=== PATIENT | female | born 1950 | race Caucasian/White ===

== ENCOUNTER → 2018-08-07 08:31 | Outpatient (CLI) | payer MEDICARE, SELFPAY ==
--- NOTE | 2018-08-07 | DI.MG.S_ITS ---
BILATERAL DIGITAL SCREENING MAMMOGRAM 3D/2D WITH CAD: 08/07/2018 CLINICAL: Routine screening. Family history of breast cancer. Comparison is made to exams dated: 06/26/2017 mammogram, 06/21/2016 mammogram - [facility], and 10/20/2014 mammogram - [facility]. There are scattered fibroglandular elements in both breasts. Current study was also evaluated with a Computer Aided Detection (CAD) system. No significant masses, calcifications, or other findings are seen in either breast. There has been no significant interval change. IMPRESSION: NEGATIVE There is no mammographic evidence of malignancy. A 1 year screening mammogram is recommended. NOTE: For mammograms, a report in lay terms will be sent to the patient. Approximately 15% of breast malignancies will not be visualized mammographically. In the management of a palpable breast mass, a negative mammogram must not discourage biopsy of a clinically suspicious lesion. Electronically Signed By: Brooklyn palacios/juju:08/07/2018 14:08:21 letter sent: Normal Exam ACR BI-RADS Category 1: Negative 3341F
== END ==
PROVIDERS: PCP Physician Assistant; Visit Provider Physician Assistant
DX: Z12.31 Encounter for screening mammogram for malignant neoplasm of breast (principal); Z80.3 Family history of malignant neoplasm of breast
CPT/HCPCS: 77063; 77067

== ENCOUNTER → 2018-10-21 08:57 | Outpatient (CLI) | payer MEDICARE, SELFPAY ==
[2018-10-21 10:36] LABS: Alanine Aminotransferase 35 IU/L (9-52); Albumin 4.1 g/dL (3.5-5.0); Albumin Globulin Ratio 1.4 (1.0-2.8); Alkaline Phosphatase 68 U/L (38-126); Aspartate Aminotransferase 33 IU/L (14-36); BUN Creatinine Ratio 21.3 (6-22); Bilirubin Total 0.6 mg/dL (0.2-1.3); Blood Urea Nitrogen 17 mg/dL (7-17); Calcium 9.3 mg/dL (8.4-10.2); Carbon Dioxide 29 mmol/L (22-32); Chloride 106 mmol/L (98-107); Cholesterol 178 mg/dL (140-199); Estimated Glomerular Filt Rate > 60.0 mL/min (>60); Glucose 102 mg/dL (80-110); HDL Cholesterol 55 mg/dL (40-60); HEMOLYSIS < 15 (0-50); LDL Cholesterol Calculated 107 mg/dL (<100); Potassium 4.9 mmol/L (3.4-5.1); Sodium 141 mmol/L (137-145); Total Protein 7.1 g/dL (6.3-8.2); Triglycerides 79 mg/dL (35-150)
[2018-10-21 11:01] LABS: Thyroid Stimulating Hormone 1.44 uIU/mL (0.47-4.68)
== END ==
PROVIDERS: PCP Physician Assistant; Visit Provider Physician Assistant
DX: E04.9 Nontoxic goiter, unspecified (principal); E78.5 Hyperlipidemia, unspecified; Z51.81 Encounter for therapeutic drug level monitoring
CPT/HCPCS: 36415; 80053; 80061; 84443

== ENCOUNTER → 2019-05-06 10:58 | Outpatient (CLI) | payer MEDICARE, SELFPAY ==
--- NOTE | 2019-05-06 11:00 | DI.RAD.S_ITS ---
PROCEDURE: XR FINGER RT MIN 2V INDICATIONS: sudden onset of swelling and pain; concern for RA TECHNIQUE: AP hand, 2 views of the right finger(s) acquired. COMPARISON: None. FINDINGS: Bones: No fractures or dislocations. No suspicious bony lesions. First CMC and triscaphe joint degeneration. Diffuse interphalangeal joint degeneration, most pronounced at the IP joint of the middle finger, where there are marginal lucencies. Additional marginal lucency present at the second and third metacarpal head. Presumed cyst projects in the lunate Soft tissues: No suspicious soft tissue calcifications. IMPRESSION: Severe middle finger DIP joint degeneration. Marginal lucencies raising possibility of erosive arthropathy. Additional possible erosion seen at the second and third metacarpal head although technically indeterminate. First CMC and triscaphe joint degeneration Dictated by: Edis Prado M.D. on 05/06/2019 at 16:03 Approved by: Edis Prado M.D. on 05/06/2019 at 16:06
[2019-05-06 12:04] LABS: Add Manual Diff / Slide Review NO; Basophils Absolute Auto 100 /uL (0-100); Basophils Percent Auto 1.9 % (0-2); Eosinophils Absolute Auto 200 /uL (0-450); Eosinophils Percent Auto 4.2 % (2-4); Hematocrit 41.8 % (36-46); Lymphocytes Absolute Auto 1500 /uL (1100-4500); Lymphocytes Percent Auto 30.9 % (25-40); Mean Corpuscular HGB Conc 33.5 % (30-36); Mean Corpuscular Hemoglobin 29.4 PG (26-34); Mean Corpuscular Volume 87.6 fL (80-100); Monocytes Absolute Auto 500 /uL (0-900); Monocytes Percent Auto 9.9 % (3-14); Neutrophils Absolute Auto 2600 /uL (1500-7000); Neutrophils Percent Auto 53.1 % (50-75); Platelet Count 205 X10^3/uL (150-400); Red Blood Cell Count 4.78 X10^6/uL (4.0-5.2)
[2019-05-06 12:20] LABS: Erythrocyte Sedimentation Rate 17 MM/HR (0-20)
[2019-05-06 12:21] LABS: Uric Acid 4.5 mg/dL (2.5-6.2)
[2019-05-06 12:28] LABS: Rheumatoid Factor < 8.6 IU/mL (<12.0)
[2019-05-08 12:18] LABS: CCP Antibody (IgG) < 16 Units (< 20)
== END ==
PROVIDERS: PCP Physician Assistant; Visit Provider Physician Assistant
DX: M79.644 Pain in right finger(s) (principal); M25.449 Effusion, unspecified hand; M25.50 Pain in unspecified joint; Z82.61 Family history of arthritis
CPT/HCPCS: 36415; 73140; 84550; 85025; 85651; 86200; 86430

== ENCOUNTER → 2019-08-12 09:26 | Outpatient (CLI) | payer MEDICARE, SELFPAY ==
--- NOTE | 2019-08-12 | DI.MG.S_ITS ---
BILATERAL DIGITAL SCREENING MAMMOGRAM 3D/2D WITH CAD: 08/12/2019 CLINICAL: Routine screening. Family history of breast cancer. Comparison is made to exams dated: 08/07/2018 mammogram, 06/26/2017 mammogram, and 06/21/2016 mammogram - [facility]. There are scattered fibroglandular elements in both breasts. Current study was also evaluated with a Computer Aided Detection (CAD) system. There is a benign cyst in the right breast. Left pacemaker. No significant masses, calcifications, or other findings are seen in either breast. There has been no significant interval change. IMPRESSION: There is no mammographic evidence of malignancy. A 1 year screening mammogram is recommended. This exam was interpreted at Station ID: [id number]. NOTE: For mammograms, a report in lay terms will be sent to the patient. Approximately 15% of breast malignancies will not be visualized mammographically. In the management of a palpable breast mass, a negative mammogram must not discourage biopsy of a clinically suspicious lesion. Electronically Signed By: Marty Torrez M.D. slc/:08/12/2019 10:01:55 letter sent: Normal Exam ACR BI-RADS Category 2: Benign Finding(s) 3342F
== END ==
PROVIDERS: PCP Physician Assistant; Visit Provider Physician Assistant
DX: Z12.31 Encounter for screening mammogram for malignant neoplasm of breast (principal); Z80.3 Family history of malignant neoplasm of breast
CPT/HCPCS: 77063; 77067

== ENCOUNTER → 2019-10-29 07:47 | Outpatient (CLI) | payer MEDICARE, SELFPAY ==
[2019-10-29 08:38] LABS: Alanine Aminotransferase 24 IU/L (<35); Albumin 4.4 g/dL (3.5-5.0); Albumin Globulin Ratio 1.5 (1.0-2.8); Alkaline Phosphatase 71 U/L (38-126); Aspartate Aminotransferase 33 IU/L (14-36); BUN Creatinine Ratio 23.8 (6-22); Bilirubin Total 0.7 mg/dL (0.2-1.3); Blood Urea Nitrogen 19 mg/dL (7-17); Calcium 9.2 mg/dL (8.4-10.2); Carbon Dioxide 30 mmol/L (22-32); Chloride 106 mmol/L (98-107); Cholesterol 184 mg/dL (140-199); Estimated Glomerular Filt Rate > 60.0 mL/min (>60); Glucose 98 mg/dL (80-110); HDL Cholesterol 48 mg/dL (40-60); HEMOLYSIS < 15 (0-50); LDL Cholesterol Calculated 108 mg/dL (<100); Potassium 4.1 mmol/L (3.4-5.1); Sodium 142 mmol/L (137-145); Total Protein 7.4 g/dL (6.3-8.2); Triglycerides 140 mg/dL (35-150)
== END ==
PROVIDERS: PCP Physician Assistant; Referring Provider Physician Assistant; Visit Provider Physician Assistant
DX: E04.9 Nontoxic goiter, unspecified (principal); E78.5 Hyperlipidemia, unspecified
CPT/HCPCS: 36415; 80053; 80061

== ENCOUNTER → 2020-08-14 08:55 | Outpatient (CLI) | payer MEDICARE, SELFPAY ==
--- NOTE | 2020-08-14 09:12 | DI.MG.S_ITS ---
Patient Name: MARGARITO BROWN date: 1950 Sex: F Attending Physician: Lexa Indications: Date: 08/14/2020 09:03 At the request of: GIANNI BERNARD Procedure: MM screening mammo BI BILATERAL DIGITAL SCREENING MAMMOGRAM 3D/2D WITH CAD: 08/14/2020 CLINICAL: Routine screening. Family history of breast cancer. Comparison is made to exams dated: 08/12/2019 mammogram, 08/07/2018 mammogram, and 06/26/2017 mammogram - [facility]. The tissue of both breasts is heterogeneously dense. This may lower the sensitivity of mammography. Current study was also evaluated with a Computer Aided Detection (CAD) system. There is a benign cyst in the right breast. There also are benign calcifications in both breasts. No significant masses, calcifications, or other findings are seen in either breast. There has been no significant interval change. IMPRESSION: BENIGN There is no mammographic evidence of malignancy. A 1 year screening mammogram is recommended. This exam was interpreted at Station ID: [id number]. NOTE: For mammograms, a report in lay terms will be sent to the patient. Approximately 15% of breast malignancies will not be visualized mammographically. In the management of a palpable breast mass, a negative mammogram must not discourage biopsy of a clinically suspicious lesion. Electronically Signed By: Jam mccabe/juju:08/16/2020 08:05:33 letter sent: Normal Exam ACR BI-RADS Category 2: Benign Finding(s) 3342F
== END ==
PROVIDERS: PCP Physician Assistant; Referring Provider Physician Assistant; Visit Provider Physician Assistant
DX: Z12.31 Encounter for screening mammogram for malignant neoplasm of breast (principal)
CPT/HCPCS: 77063; 77067

== ENCOUNTER → 2020-10-21 14:25 | Outpatient (CLI) | payer MEDICARE, SELFPAY ==
[2020-10-21] MEDS: COVID-19 VACC #1, MRNA(MOD) 100 MCG/0.5 ML VIAL IM (14:29)
== END ==
PROVIDERS: PCP Physician Assistant; Visit Provider Internal Medicine
DX: Z23 Encounter for immunization (principal)
CPT/HCPCS: 0011A; 91301

== ENCOUNTER → 2020-11-18 14:18 | Outpatient (CLI) | payer MEDICARE, SELFPAY ==
[2020-11-18] MEDS: COVID-19 VACC #2, MRNA(MOD) 100 MCG/0.5 ML VIAL IM (14:31)
== END ==
PROVIDERS: PCP Family Medicine; Visit Provider Internal Medicine
DX: Z23 Encounter for immunization (principal)
CPT/HCPCS: 0012A; 91301

== ENCOUNTER → 2021-01-12 07:06 | Outpatient (CLI) | payer MEDICARE, SELFPAY ==
[2021-01-12 08:11] LABS: Alanine Aminotransferase 22 IU/L (<35); Albumin 3.9 g/dL (3.5-5.0); Albumin Globulin Ratio 1.6 (1.0-2.8); Alkaline Phosphatase 71 U/L (38-126); Aspartate Aminotransferase 30 IU/L (14-36); BUN Creatinine Ratio 22.4 (6-22); Bilirubin Total 0.4 mg/dL (0.2-1.3); Blood Urea Nitrogen 19 mg/dL (7-17); Calcium 9.6 mg/dL (8.4-10.2); Carbon Dioxide 28 mmol/L (22-32); Chloride 107 mmol/L (98-107); Cholesterol 157 mg/dL (140-199); Estimated Glomerular Filt Rate > 60.0 mL/min (>60); Globulin 2.5 g/dL (1.7-4.1); Glucose 88 mg/dL (80-110); HDL Cholesterol 54 mg/dL (40-60); HEMOLYSIS < 15 (0-50); LDL Cholesterol Calculated 78 mg/dL (<100); Potassium 5.3 mmol/L (3.4-5.1); Sodium 140 mmol/L (137-145); Total Protein 6.4 g/dL (6.3-8.2); Triglycerides 127 mg/dL (35-150)
== END ==
PROVIDERS: PCP Family Medicine; Referring Provider Family Medicine; Visit Provider Family Medicine
DX: E04.9 Nontoxic goiter, unspecified (principal); E78.5 Hyperlipidemia, unspecified
CPT/HCPCS: 36415; 80053; 80061

== ENCOUNTER → 2021-02-17 09:46 | Outpatient (CLI) | payer MEDICARE, SELFPAY ==
[2021-02-17 10:48] LABS: BUN Creatinine Ratio 19.3 (6-22); Blood Urea Nitrogen 17 mg/dL (7-17); Calcium 9.9 mg/dL (8.4-10.2); Carbon Dioxide 30 mmol/L (22-32); Chloride 104 mmol/L (98-107); Estimated Glomerular Filt Rate > 60.0 mL/min (>60); Glucose 86 mg/dL (80-110); HEMOLYSIS < 15 (0-50); Potassium 4.6 mmol/L (3.4-5.1); Sodium 140 mmol/L (137-145)
== END ==
PROVIDERS: PCP Family Medicine; Referring Provider Family Medicine; Visit Provider Family Medicine
DX: E87.5 Hyperkalemia (principal)
CPT/HCPCS: 36415; 80048

== ENCOUNTER → 2021-09-01 10:58 | Outpatient (CLI) | payer MEDICARE, SELFPAY ==
--- NOTE | 2021-09-01 | DI.MG.S_ITS ---
BILATERAL DIGITAL SCREENING MAMMOGRAM 3D/2D WITH CAD: 09/01/2021 CLINICAL: Routine screening. Family history of breast cancer. Comparison is made to exams dated: 08/14/2020 mammogram, 08/12/2019 mammogram, and 08/07/2018 mammogram - [facility]. The tissue of both breasts is heterogeneously dense. This may lower the sensitivity of mammography. Current study was also evaluated with a Computer Aided Detection (CAD) system. There is an oval low density asymmetry with a circumscribed margin in the left breast middle depth superior region seen on the mediolateral oblique view only. This is increased in size. No other significant masses, calcifications, or other findings are seen in either breast. IMPRESSION: INCOMPLETE: NEEDS ADDITIONAL IMAGING EVALUATION The oval low density asymmetry in the left breast is indeterminate. A diagnostic mammogram and ultrasound is recommended. This exam was interpreted at Station ID: [id number]. NOTE: For mammograms, a report in lay terms will be sent to the patient. Approximately 15% of breast malignancies will not be visualized mammographically. In the management of a palpable breast mass, a negative mammogram must not discourage biopsy of a clinically suspicious lesion. Electronically Signed By: Renita garcia/:09/01/2021 11:55:53 letter sent: Additional Imaging Needed ACR BI-RADS Category 0: Incomplete 3340F
== END ==
PROVIDERS: PCP Family Medicine; Referring Provider Family Medicine; Visit Provider Family Medicine
DX: Z12.31 Encounter for screening mammogram for malignant neoplasm of breast (principal); Z80.3 Family history of malignant neoplasm of breast
CPT/HCPCS: 77063; 77067

== ENCOUNTER → 2021-09-04 11:16 | Outpatient (CLI) | payer MEDICARE, SELFPAY ==
[2021-09-04 11:45] LABS: COVID19 -Nasal RAPID Negative (Negative)
== END ==
PROVIDERS: PCP Family Medicine; Referring Provider Nurse Practitioner Family; Visit Provider Nurse Practitioner Family
DX: R05.9 Cough, unspecified (principal); R09.89 Other specified symptoms and signs involving the circulatory and respiratory systems; R53.83 Other fatigue
CPT/HCPCS: 87635

== ENCOUNTER → 2021-09-29 14:04 | Outpatient (CLI) | payer MEDICARE, SELFPAY ==
--- NOTE | 2021-09-29 | DI.MG.S_ITS ---
UNILATERAL LEFT DIGITAL DIAGNOSTIC MAMMOGRAM 3D/2D WITH ADDITIONAL VIEWS: 09/29/2021 CLINICAL: Additional evaluation requested from prior study. Comparison is made to exams dated: 09/01/2021 mammogram, 08/14/2020 mammogram, 08/12/2019 mammogram, and 08/07/2018 mammogram - [facility]. The tissue of left breast is heterogeneously dense. This may lower the sensitivity of mammography. There is a 0.6 cm oval mass with a circumscribed margin in the left breast at 12 o'clock middle depth. This is seen in additional views. This is increased in size. No other significant masses or calcifications are seen in the breast. IMPRESSION: INCOMPLETE: NEEDS ADDITIONAL IMAGING EVALUATION The 0.6 cm oval mass in the left breast is indeterminate. An ultrasound is recommended. This exam was interpreted at Station ID: [id number]. NOTE: For mammograms, a report in lay terms will be sent to the patient. Approximately 15% of breast malignancies will not be visualized mammographically. In the management of a palpable breast mass, a negative mammogram must not discourage biopsy of a clinically suspicious lesion. Electronically Signed By: Moses ortega/juju:09/29/2021 14:39:22 ACR BI-RADS Category 0: Incomplete 3340F
--- NOTE | 2021-09-29 14:06 | DI.US.S_ITS ---
LIMITED ULTRASOUND OF LEFT BREAST: 09/29/2021 CLINICAL: Patient returns today to evaluate an asymmetry in the left breast. Comparison is made to exams dated: 09/29/2021 mammogram, 09/01/2021 mammogram, 08/14/2020 mammogram, 08/12/2019 mammogram, and 08/07/2018 mammogram - [facility]. Color flow ultrasound of the left breast 12 o'clock region was performed. Hodge scale images of the real-time examination were reviewed. There is a 0.6 cm x 0.7 cm x 0.3 cm oval cyst with a smooth internal wall in the left breast at 12 o'clock middle depth 2 cm from the nipple. This oval cyst is hypoechoic with posterior acoustic enhancement. This correlates with mammography findings. Color flow imaging demonstrates that there is no vascularity present. IMPRESSION: PROBABLY BENIGN The 0.6 cm x 0.7 cm x 0.3 cm oval cyst in the left breast is consistent with a complicated cyst and is probably benign. A follow-up left ultrasound in 6 months is recommended to demonstrate stability. This exam was interpreted at Station ID: [id number]. Electronically Signed By: Moses ortega/juju:09/29/2021 14:40:36 letter sent: Followup Recommended Ultrasound BI-RADS: 3 Probably benign
== END ==
PROVIDERS: PCP Family Medicine; Referring Provider Family Medicine; Visit Provider Family Medicine
DX: R92.8 Other abnormal and inconclusive findings on diagnostic imaging of breast (principal); N60.02 Solitary cyst of left breast
CPT/HCPCS: 76642; 77065; G0279

== ENCOUNTER → 2022-01-24 07:14 | Outpatient (CLI) | payer MEDICARE, SELFPAY ==
[2022-01-24 08:48] LABS: Add Manual Diff / Slide Review NO; Basophils Absolute Auto 100 /uL (0-100); Basophils Percent Auto 1.7 % (0-2); Eosinophils Absolute Auto 700 /uL (0-450); Eosinophils Percent Auto 11.6 % (2-4); Hematocrit 39.9 % (36-46); Hemoglobin 13.6 g/dL (12.0-16.0); Lymphocytes Absolute Auto 1600 /uL (1100-4500); Lymphocytes Percent Auto 27.5 % (25-40); Mean Corpuscular HGB Conc 34.1 % (30-36); Mean Corpuscular Hemoglobin 29.3 PG (26-34); Monocytes Absolute Auto 500 /uL (0-900); Monocytes Percent Auto 8.2 % (3-14); Neutrophils Absolute Auto 2900 /uL (1500-7000); Platelet Count 205 X10^3/uL (150-400); Red Blood Cell Count 4.65 X10^6/uL (4.0-5.2); Red Cell Distribution Width 13.1 % (11.6-14.8); White Blood Cell Count 5.7 X10^3/uL (4.5-11.0)
[2022-01-24 08:59] LABS: Alanine Aminotransferase 29 IU/L (<35); Albumin 4.2 g/dL (3.5-5.0); Albumin Globulin Ratio 1.4 (1.0-2.8); Alkaline Phosphatase 63 U/L (38-126); Aspartate Aminotransferase 28 IU/L (14-36); BUN Creatinine Ratio 18.9 (6-22); Bilirubin Total 0.4 mg/dL (0.2-1.3); Blood Urea Nitrogen 17 mg/dL (7-17); Calcium 8.8 mg/dL (8.4-10.2); Carbon Dioxide 29 mmol/L (22-32); Chloride 106 mmol/L (98-107); Cholesterol 192 mg/dL (140-199); Estimated Glomerular Filt Rate > 60 mL/min (>60); Glucose 96 mg/dL (80-110); HDL Cholesterol 52 mg/dL (40-60); HEMOLYSIS < 15 (0-50); LDL Cholesterol Calculated 114 mg/dL (<100); Potassium 4.3 mmol/L (3.4-5.1); Sodium 141 mmol/L (137-145); Total Protein 7.2 g/dL (6.3-8.2); Triglycerides 129 mg/dL (35-150)
== END ==
PROVIDERS: PCP Family Medicine; Referring Provider Family Medicine; Visit Provider Family Medicine
DX: E78.5 Hyperlipidemia, unspecified (principal); E78.2 Mixed hyperlipidemia; E04.9 Nontoxic goiter, unspecified
CPT/HCPCS: 36415; 80053; 80061; 84443; 85025

== ENCOUNTER → 2022-04-03 09:19 | Outpatient (CLI) | payer MEDICARE, SELFPAY ==
--- NOTE | 2022-04-03 09:20 | DI.US.S_ITS ---
LIMITED ULTRASOUND OF LEFT BREAST: 04/03/2022 CLINICAL: 6 month follow-up of cysts. Comparison is made to exams dated: 04/03/2022 mammogram, 09/29/2021 ultrasound, 09/29/2021 mammogram, 09/01/2021 mammogram, 08/14/2020 mammogram, and 08/12/2019 mammogram - [facility]. Color flow ultrasound of the left breast 12 o'clock region was performed. Hodge scale images of the real-time examination were reviewed. There is a 0.6 cm x 0.8 cm x 0.4 cm oval cyst with a smooth internal wall in the left breast at 12 o'clock middle depth 2 cm from the nipple. This oval cyst is hypoechoic with posterior acoustic enhancement. This abnormality is not significantly changed and correlates with mammography findings. Color flow imaging demonstrates that there is no vascularity present. IMPRESSION: PROBABLY BENIGN The 0.6 cm x 0.8 cm x 0.4 cm oval cyst in the left breast is consistent with a complicated cyst and is probably benign. A follow-up mammogram and an ultrasound in 6 months is recommended to demonstrate stability. This exam was interpreted at Station ID: [id number]. Electronically Signed By: Moses ortega/juju:04/03/2022 10:41:16 letter sent: Followup Recommended Ultrasound BI-RADS: 3 Probably benign
--- NOTE | 2022-04-03 09:20 | DI.MG.S_ITS ---
UNILATERAL LEFT DIGITAL DIAGNOSTIC MAMMOGRAM 3D/2D SHORT-TERM FOLLOW-UP: 04/03/2022 CLINICAL: Short term follow up. Comparison is made to exams dated: 09/29/2021 ultrasound, 09/29/2021 mammogram, 09/01/2021 mammogram, 08/14/2020 mammogram, and 08/12/2019 mammogram - [facility]. The tissue of left breast is heterogeneously dense. This may lower the sensitivity of mammography. There is a 0.6 cm oval mass with a circumscribed margin in the left breast at 12 o'clock middle depth. This is not significantly changed. No other significant masses or calcifications are seen in the breast. IMPRESSION: INCOMPLETE: NEEDS ADDITIONAL IMAGING EVALUATION The 0.6 cm oval mass in the left breast is indeterminate. An ultrasound is recommended. This exam was interpreted at Station ID: [id number]. NOTE: For mammograms, a report in lay terms will be sent to the patient. Approximately 15% of breast malignancies will not be visualized mammographically. In the management of a palpable breast mass, a negative mammogram must not discourage biopsy of a clinically suspicious lesion. Electronically Signed By: Moses ortega/juju:04/03/2022 10:40:12 ACR BI-RADS Category 0: Incomplete 3340F
== END ==
PROVIDERS: PCP Family Medicine; Referring Provider Family Medicine; Visit Provider Family Medicine
DX: R92.8 Other abnormal and inconclusive findings on diagnostic imaging of breast (principal); N63.20 Unspecified lump in the left breast, unspecified quadrant
CPT/HCPCS: 76642; 77065; G0279

== ENCOUNTER → 2022-10-04 12:04 | Outpatient (CLI) | payer MEDICARE, SELFPAY ==
--- NOTE | 2022-10-04 12:06 | DI.US.S_ITS ---
LIMITED ULTRASOUND OF LEFT BREAST: 10/04/2022 CLINICAL: Patient returns today to evaluate an asymmetry in the left breast. Comparison is made to exams dated: 10/04/2022 mammogram, 04/03/2022 ultrasound, 04/03/2022 mammogram, 09/29/2021 ultrasound, 09/29/2021 mammogram, and 09/01/2021 mammogram - [facility]. Color flow ultrasound of the left breast 12 o'clock region was performed. Hodge scale images of the real-time examination were reviewed. There is a stable 0.6 cm x 0.8 cm x 0.4 cm oval cyst in the left breast at 12 o'clock anterior depth 2 cm from the nipple. This oval cyst is nearly anechoic and minimally hypoechoic with posterior acoustic enhancement. This correlates with mammography findings. Color flow imaging demonstrates that there is no vascularity present. IMPRESSION: PROBABLY BENIGN The stable 0.6 cm x 0.8 cm x 0.4 cm oval cyst in the left breast is consistent with a complicated cyst and is probably benign. A follow-up left mammogram and an ultrasound in 12 months is recommended. The patient will be due for bilateral mammograms at that same visit. Findings and recommendations were conveyed to the patient at time of exam. This exam was interpreted at Station ID: [id number]. Electronically Signed By: Renita garcia/:10/04/2022 14:16:48 letter sent: Followup Recommended Ultrasound BI-RADS: 3 Probably benign
--- NOTE | 2022-10-04 12:06 | DI.MG.S_ITS ---
BILATERAL DIGITAL DIAGNOSTIC MAMMOGRAM 3D/2D SHORT-TERM FOLLOW-UP: 10/04/2022 CLINICAL: Short term follow up of the left breast, due for bilateral imaging. Comparison is made to exams dated: 04/03/2022 mammogram, 09/29/2021 mammogram, and 09/01/2021 mammogram - [facility]. Both breasts are heterogeneously dense, which may obscure small masses (category c / 51-75% glandular tissue). There is a 7 mm oval low density asymmetry with a circumscribed margin in the left breast at 12 o'clock middle depth. This is seen in additional views. This is not significantly changed. No other significant masses, calcifications, or other findings are seen in either breast. Mammograms are otherwise stable. IMPRESSION: INCOMPLETE: NEEDS ADDITIONAL IMAGING EVALUATION The 7 mm oval low density asymmetry in the left breast is stable. An ultrasound is recommended for confirmation of stability. This was performed immediately following this exam. This exam was interpreted at Station ID: [id number]. NOTE: For mammograms, a report in lay terms will be sent to the patient. Approximately 15% of breast malignancies will not be visualized mammographically. In the management of a palpable breast mass, a negative mammogram must not discourage biopsy of a clinically suspicious lesion. Electronically Signed By: Renita garcia/:10/04/2022 13:03:32 ACR BI-RADS Category 0: Incomplete 3340F
== END ==
PROVIDERS: PCP Family Medicine; Referring Provider Family Medicine; Visit Provider Family Medicine
DX: R92.8 Other abnormal and inconclusive findings on diagnostic imaging of breast (principal); N60.02 Solitary cyst of left breast
CPT/HCPCS: 76642; 77066; G0279

== ENCOUNTER → 2022-11-17 12:25 | Outpatient (CLI) | payer MEDICARE, SELFPAY ==
[2022-11-17 14:04] LABS: Add Manual Diff / Slide Review NO; Basophils Absolute Auto 100 /uL (0-100); Basophils Percent Auto 1.3 % (0-2); Eosinophils Absolute Auto 200 /uL (0-450); Eosinophils Percent Auto 2.9 % (2-4); Hematocrit 39.9 % (36-46); Hemoglobin 13.1 g/dL (12.0-16.0); Lymphocytes Absolute Auto 1700 /uL (1100-4500); Lymphocytes Percent Auto 24.8 % (25-40); Mean Corpuscular HGB Conc 32.7 % (30-36); Mean Corpuscular Hemoglobin 28.4 PG (26-34); Mean Corpuscular Volume 86.8 fL (80-100); Monocytes Absolute Auto 500 /uL (0-900); Monocytes Percent Auto 7.8 % (3-14); Neutrophils Absolute Auto 4300 /uL (1500-7000); Neutrophils Percent Auto 63.2 % (50-75); Platelet Count 234 X10^3/uL (150-400); Red Cell Distribution Width 12.9 % (11.6-14.8); White Blood Cell Count 6.8 X10^3/uL (4.5-11.0)
[2022-11-17 14:14] LABS: Alanine Aminotransferase 26 IU/L (<35); Albumin 4.4 g/dL (3.5-5.0); Albumin Globulin Ratio 1.4 (1.0-2.8); Alkaline Phosphatase 77 U/L (38-126); Aspartate Aminotransferase 28 IU/L (14-36); BUN Creatinine Ratio 23.6 (6-22); Bilirubin Total 0.6 mg/dL (0.2-1.3); Blood Urea Nitrogen 17 mg/dL (7-17); Calcium 9.1 mg/dL (8.4-10.2); Carbon Dioxide 30 mmol/L (22-32); Chloride 103 mmol/L (98-107); Estimated Glomerular Filt Rate > 60 mL/min (>60); Globulin 3.1 g/dL (1.7-4.1); Glucose 81 mg/dL (80-110); HEMOLYSIS < 15 (0-50); Potassium 4.7 mmol/L (3.4-5.1); Sodium 140 mmol/L (137-145); Total Protein 7.5 g/dL (6.3-8.2)
[2022-11-17 14:45] LABS: TSH w/ Reflex to FT4 0.05 uIU/mL (0.47-4.68)
[2022-11-17 15:03] LABS: Vitamin B12 734 pg/mL (239-931)
== END ==
PROVIDERS: PCP Family Medicine; Referring Provider Family Medicine; Visit Provider Family Medicine
DX: R20.0 Anesthesia of skin (principal)
CPT/HCPCS: 36415; 80053; 82607; 84439; 84443; 85025

== ENCOUNTER → 2023-01-01 07:52 | Outpatient (CLI) | payer MEDICARE, SELFPAY ==
[2023-01-01 09:39] LABS: TSH w/ Reflex to FT4 0.38 uIU/mL (0.47-4.68)
[2023-01-01 10:03] LABS: Free T4, Direct Thyroxine 0.94 ng/dL (0.78-2.19)
== END ==
PROVIDERS: PCP Family Medicine; Referring Provider Family Medicine; Visit Provider Family Medicine
DX: R79.89 Other specified abnormal findings of blood chemistry (principal)
CPT/HCPCS: 36415; 84439; 84443

== ENCOUNTER → 2023-01-24 08:15 | Outpatient (CLI) | payer MEDICARE, SELFPAY ==
--- NOTE | 2023-01-24 08:16 | DI.US.S_ITS ---
PROCEDURE: US THYROID INDICATIONS: low tsh level, thyroid nodules TECHNIQUE: Real-time scanning was performed of the thyroid gland, with image documentation. COMPARISON: [facility], US, THYROID, 04/27/2017, 10:53. FINDINGS: Right: Thyroid lobe measures 6.9 x 1.7 x 3.4 cm, and is homogeneous in echotexture. Left: Thyroid lobe measures 5.6 x 1.4 x 2.0 cm, and is homogenous in echotexture. Isthmus: 4 mm thick. Nodule number: 1; previous inclusive biopsy Location: Right superior pole Size: 2.5 x 1.7 x 1.5 cm. Previously 2.3 x 1.3 x 2.0 centimeter. Composition: Mixed solid and cystic Echogenicity: Hypoechoic Shape: wider than tall. Margins: Smooth Echogenic foci: Punctate Total points: 6 ACR TI-RADS category: Moderate suspicion Nodule number: 2. Previously biopsied with benign results. Location: Right inferior pole Size: 3.8 x 3.4 x 2.3 cm. Previously 2.1 x 2.2 x 1.6 Composition: Mostly solid Echogenicity: Isoechoic Shape: wider than tall. Margins: Smooth Echogenic foci: None Total points: 3 ACR TI-RADS category: Mild suspicion Nodule number: 3 Location: Left inferior Size: 0.7 cm. Composition: Cystic ACR TI-RADS category: Benign Nodule number: 4 Location: Left superior pole Size: 2.0 x 1.2 x 1.3 cm. Previously 0.8 x 0.6 x 0.5 centimeter. Composition: Mixed cystic and solid Echogenicity: Isoechoic Shape: wider than tall. Margins: Smooth Echogenic foci: None Total points: 2 ACR TI-RADS category: Not suspicious IMPRESSION: Slight interval growth of the moderate suspicion thyroid nodule on the superior pole of the right thyroid. This was previously biopsied with inconclusive results. Moderate interval growth of the mildly suspicion thyroid nodule in the inferior pole of the right thyroid lobe. This was previously biopsied with benign results. ACR TI-RADS definitions and recommendations: TI-RADS 1 (benign): 0 points. FNA not needed. TI-RADS 2 (not suspicious): 2 points. FNA not needed. TI-RADS 3 (mildly suspicious): 3 points. * FNA if 2.5 cm or larger, follow up if 1.5 cm or larger (at 1, 3, and 5 years). TI-RADS 4 (moderately suspicious): 4-6 points. * FNA if 1.5 cm or larger, follow up if 1 cm or larger (at 1, 2, 3, and 5 years). TI-RADS 5 (highly suspicious): 7 points or more. * FNA if 1 cm or larger, follow up if 0.5 cm or larger (every year for 5 years). Dictated by: Guillaume Choi M.D. on 01/24/2023 at 13:04 Approved by: Guillaume Choi M.D. on 01/24/2023 at 13:11
== END ==
PROVIDERS: PCP Family Medicine; Referring Provider Family Medicine; Visit Provider Family Medicine
DX: E04.2 Nontoxic multinodular goiter (principal); R79.89 Other specified abnormal findings of blood chemistry
CPT/HCPCS: 76536

== ENCOUNTER → 2023-02-22 11:01 | Outpatient (CLI) | payer MEDICARE, SELFPAY ==
[2023-02-22 12:35] LABS: TSH w/ Reflex to FT4 0.15 uIU/mL (0.47-4.68)
[2023-02-22 13:00] LABS: Free T4, Direct Thyroxine 1.12 ng/dL (0.78-2.19)
== END ==
PROVIDERS: PCP Family Medicine; Referring Provider Family Medicine; Visit Provider Family Medicine
DX: E04.9 Nontoxic goiter, unspecified (principal); R79.89 Other specified abnormal findings of blood chemistry
CPT/HCPCS: 36415; 84439; 84443

== ENCOUNTER → 2023-05-22 13:12 | Outpatient (CLI) | payer MEDICARE, SELFPAY ==
[2023-05-22 14:14] LABS: Add Manual Diff / Slide Review NO; Basophils Absolute Auto 100 /uL (0-100); Basophils Percent Auto 1.3 % (0-2); Eosinophils Absolute Auto 200 /uL (0-450); Eosinophils Percent Auto 3.6 % (2-4); Hematocrit 39.5 % (36-46); Hemoglobin 13.7 g/dL (12.0-16.0); Lymphocytes Absolute Auto 1500 /uL (1100-4500); Lymphocytes Percent Auto 28.1 % (25-40); Mean Corpuscular HGB Conc 34.6 % (30-36); Mean Corpuscular Hemoglobin 29.3 PG (26-34); Mean Corpuscular Volume 84.5 fL (80-100); Monocytes Absolute Auto 300 /uL (0-900); Monocytes Percent Auto 6.4 % (3-14); Neutrophils Absolute Auto 3300 /uL (1500-7000); Neutrophils Percent Auto 60.6 % (50-75); Platelet Count 216 X10^3/uL (150-400); Red Blood Cell Count 4.68 X10^6/uL (4.0-5.2); Red Cell Distribution Width 13.3 % (11.6-14.8); White Blood Cell Count 5.4 X10^3/uL (4.5-11.0)
[2023-05-22 14:38] LABS: Alanine Aminotransferase 25 IU/L (<35); Albumin 4.4 g/dL (3.5-5.0); Albumin Globulin Ratio 1.4 (1.0-2.8); Alkaline Phosphatase 79 U/L (38-126); Aspartate Aminotransferase 28 IU/L (14-36); BUN Creatinine Ratio 19.5 (6-22); Bilirubin Total 0.4 mg/dL (0.2-1.3); Blood Urea Nitrogen 15 mg/dL (7-17); Calcium 9.3 mg/dL (8.4-10.2); Carbon Dioxide 25 mmol/L (22-32); Chloride 107 mmol/L (98-107); Estimated Glomerular Filt Rate > 60 mL/min (>60); Globulin 3.1 g/dL (1.7-4.1); Glucose 98 mg/dL (80-110); HEMOLYSIS < 15 (0-50); Potassium 4.3 mmol/L (3.4-5.1); Sodium 138 mmol/L (137-145); Total Protein 7.5 g/dL (6.3-8.2)
[2023-05-22 14:56] LABS: Free T3, Triiodothyronine Free 4.25 pg/mL (2.77-5.27); Free T4, Direct Thyroxine 0.99 ng/dL (0.78-2.19)
[2023-05-23 06:40] LABS: Thyroid Peroxidase Antibodies <9 IU/mL (0-34)
[2023-05-23 16:56] LABS: Anti Thyroglobulin Antibody <1.0 IU/mL (0.0-0.9)
[2023-05-24 07:40] LABS: Thyrotropin Receptor AB <1.10 IU/L (0.00-1.75)
[2023-05-24 19:25] LABS: Thyroid Stimulating Immunoglob < 0.10 IU/L (0.00-0.55)
== END ==
PROVIDERS: PCP Family Medicine; Referring Provider Internal Medicine Endocrinology, Diabetes & Metabolism; Visit Provider Internal Medicine Endocrinology, Diabetes & Metabolism
DX: E05.90 Thyrotoxicosis, unspecified without thyrotoxic crisis or storm (principal)
CPT/HCPCS: 36415; 80053; 83520; 84439; 84443; 84445; 84481; 85025; 86376; 86800

== ENCOUNTER → 2023-10-15 08:40 | Outpatient (CLI) | payer MEDICARE, SELFPAY ==
--- NOTE | 2023-10-15 08:41 | DI.MG.S_ITS ---
BILATERAL DIGITAL DIAGNOSTIC MAMMOGRAM 3D/2D SHORT-TERM FOLLOW-UP: 10/15/2023 CLINICAL: Patient returns for a 2 year follow up of the left breast, due for bilateral exam. Comparison is made to exams dated: 10/04/2022 mammogram, 04/03/2022 mammogram, 09/29/2021 mammogram, 09/01/2021 mammogram, and 08/14/2020 mammogram - [facility]. Both breasts are heterogeneously dense, which may obscure small masses (category c / 51-75% glandular tissue). There is an oval low density asymmetry with a circumscribed margin in the left breast at 12 o'clock middle depth. This is less prominent and correlates with ultrasound findings. No other significant masses, calcifications, or other findings are seen in either breast. IMPRESSION: INCOMPLETE: NEEDS ADDITIONAL IMAGING EVALUATION The oval low density asymmetry in the left breast resembles a cyst and is indeterminate. An ultrasound is recommended for further evaluation and is scheduled to immediately follow this examination. Based on the Tyrer Cuzick model (a risk assessment model) the patient's lifetime risk is 15.1% and her 10 year risk is 12.4%. According to the ACR, ACS, and NCCN guidelines, an annual breast MRI exam along with mammogram is recommended if the patient's lifetime risk is 20% or greater. This exam was interpreted at Station ID: [id number]. NOTE: For mammograms, a report in lay terms will be sent to the patient. Approximately 15% of breast malignancies will not be visualized mammographically. In the management of a palpable breast mass, a negative mammogram must not discourage biopsy of a clinically suspicious lesion. Electronically Signed By: Benedict Landers M.D. aty/:10/15/2023 09:49:17 ACR BI-RADS Category 0: Incomplete 3340F
--- NOTE | 2023-10-15 08:41 | DI.US.S_ITS ---
LIMITED ULTRASOUND OF LEFT BREAST: 10/15/2023 CLINICAL: Patient returns today to evaluate a focal asymmetry in the left breast. Comparison is made to exams dated: 10/15/2023 mammogram, 10/04/2022 ultrasound, 10/04/2022 mammogram, 04/03/2022 ultrasound, 04/03/2022 mammogram, and 09/29/2021 ultrasound - [facility]. Color flow and real-time ultrasound of the left breast 12 o'clock region were performed. Hodge scale images of the real-time examination were reviewed. There is a 0.5 cm x 0.3 cm x 0.5 cm oval cyst in the left breast at 12 o'clock anterior depth 2 cm from the nipple. This oval cyst is anechoic and hypoechoic with posterior acoustic enhancement. This abnormality is less prominent and correlates with mammography findings. Color flow imaging demonstrates that there is no vascularity present. IMPRESSION: BENIGN There is no sonographic evidence of malignancy. The stable 0.5 cm x 0.3 cm x 0.5 cm oval cyst in the left breast is consistent with a complicated cyst. This finding has demonstrated two years of stability and is consistent with a benign process. A 1 year screening mammogram is recommended. Findings and recommendations were conveyed to the patient during today's evaluation. This exam was interpreted at Station ID: [id number]. Electronically Signed By: Benedict Landers M.D. aty/:10/15/2023 09:51:21 letter sent: Normal Exam Ultrasound BI-RADS: 2 Benign
== END ==
LOC: MAMMO 08:41
PROVIDERS: PCP Family Medicine; Referring Provider Registered Nurse Diabetes Educator; Visit Provider Registered Nurse Diabetes Educator
DX: R92.2 Inconclusive mammogram (principal); N60.02 Solitary cyst of left breast; R92.333 Mammographic heterogeneous density, bilateral breasts
CPT/HCPCS: 76642; 77066; G0279

== ENCOUNTER → 2024-10-21 09:06 | Outpatient (CLI) | payer MEDICARE, SELFPAY ==
--- NOTE | 2024-10-21 09:07 | DI.MG.S_ITS ---
BILATERAL DIGITAL SCREENING MAMMOGRAM 3D/2D WITH CAD: 10/21/2024 CLINICAL: Routine screening. Family history of breast cancer. Comparison is made to exams dated: 10/15/2023 mammogram, 10/04/2022 mammogram, 04/03/2022 mammogram, 09/29/2021 mammogram, 09/01/2021 mammogram, and 08/14/2020 mammogram - [facility]. The breasts are heterogeneously dense, which may obscure small masses (category c / 51-75% glandular tissue). Current study was also evaluated with a Computer Aided Detection (CAD) system. There are benign vascular calcifications in both breasts. There also are benign post operative findings in the right breast. No significant masses, calcifications, or other findings are seen in either breast. There has been no significant interval change. IMPRESSION: BENIGN There is no mammographic evidence of malignancy. A 1 year screening mammogram is recommended. Based on the Tyrer Cuzick model (a risk assessment model) the patient's lifetime risk is 14.1% and her 10 year risk is 12.8%. According to the ACR, ACS, and NCCN guidelines, an annual breast MRI exam along with mammogram is recommended if the patient's lifetime risk is 20% or greater. This exam was interpreted at Station ID: [id number]. NOTE: For mammograms, a report in lay terms will be sent to the patient. Approximately 15% of breast malignancies will not be visualized mammographically. In the management of a palpable breast mass, a negative mammogram must not discourage biopsy of a clinically suspicious lesion. Electronically Signed By: Marty juares/juju:10/21/2024 15:24:00 letter sent: Normal Exam ACR BI-RADS Category 2: Benign
== END ==
PROVIDERS: PCP Family Medicine; Referring Provider Family Medicine; Visit Provider Family Medicine
DX: Z12.31 Encounter for screening mammogram for malignant neoplasm of breast (principal); Z80.3 Family history of malignant neoplasm of breast
CPT/HCPCS: 77063; 77067

== ENCOUNTER 2024-12-05 07:09 | Day surgery (SDC) | payer MEDICARE, SELFPAY ==
--- NOTE | 2024-12-05 | PATH_ITS ---
[facility] Accession Number: [id number] No. of containers..01 Tissue . 01 Material submitted: . colon - SIGMOID POLYP . 01 Diagnosis: SIGMOID POLYP: Hyperplastic polyp. STO 12/09/2024 1450 Local . 01 Electronically signed: . Jam Zurita MD, Pathologist NPI- [id number] . 01 Gross description: . SIGMOID POLYP: Received in formalin are 2 fragment(s) of arnett, soft tissue measuring 0.3 x 0.3 x 0.1 cm to 0.4 x 0.4 x 0.2 cm submitted entirely in 1 cassette(s) /WENDI 12/09/2024 [facility]0 Local . 01 Pathologist provided ICD-10: K63.5 . 01 CPT . 942483 Specimen Comment: A courtesy copy of this report has been sent to [facility] Pathology Performed at: 01 [facility] [address] [address], [place], [place] [id number] MD Jam Zurita MD Phone: [phone]
[2024-12-05 07:37] VITALS: BP 164/82; PULSE 80; RESP 16; TEMP 36.3; O2SAT 98
[2024-12-05] MEDS: LACTATED RINGERS 1,000 ML 100 ML IV (07:44)
--- NOTE | 2024-12-05 08:12 | PM.HP.IH.1 ---
History of Present Illness History of Present Illness Date Patient Seen: 12/05/24 Time Patient Seen: 08:13 Chief complaint: Colonoscopy Narrative: 74-year-old white female presents with subsequent colon screening. Colonoscopy over 10 years ago was unremarkable. No family history no changes in bowel habits. [facility] Medical History (Updated 12/05/24 @ 08:13 by Jase Huang MD) Colon cancer screening Numbness in feet Medicare annual wellness visit, initial Finger joint swelling Hyperlipidemia Surgical History Status post breast lumpectomy Family History Father Smoker Mother Non-ST elevation (NSTEMI) myocardial infarction End stage renal disease Social History Smoking Status: Never smoker second hand exposure: No alcohol intake: current substance use type: does not use Meds Home Medications and Allergies Home Medications Medication Instructions Recorded Confirmed Type coiwcvbb-jbvxfwq-zfnc-lutein tablet mcg PO DAILY 10/17/18 11/29/23 History metronidazole 0.75 % topical cream 1 applic topical BID 01/31/22 11/29/23 History psyllium husk [Fiber (psyllium PO 01/31/22 11/29/23 History husk)] albuterol sulfate 90 mcg/actuation 2 puff inhalation Q6H PRN 11/29/23 11/29/23 Rx aerosol inhaler shortness of breath or wheezing #8.5 grams atorvastatin 10 mg tablet See Rx Instructions .Route 11/29/23 11/29/23 Rx .COMPLEX #90 tabs benzonatate 200 mg capsule 200 mg PO TID PRN cough #60 caps 11/29/23 11/29/23 Rx methimazole 5 mg tablet 2.5 mg PO .QOD 11/29/23 11/29/23 History sodium,potassium,mag sulfates 17.5 See Rx Instructions PO .COMPLEX 11/05/24 Rx gram-3.13 gram-1.6 gram oral soln #354 mL (Suprep Bowel Prep Kit) amlodipine 2.5 mg tablet 2.5 mg PO QAM #90 tabs 11/07/24 12/05/24 Rx lisinopril 2.5 mg tablet 2.5 mg PO QPM #90 tabs 11/07/24 12/05/24 Rx atorvastatin 10 mg tablet 10 mg PO ONCE PM 12/05/24 12/05/24 History Allergies Allergy/AdvReac Type Severity Reaction Status Date / Time chlorhexidine Allergy Intermediate Rash Verified 12/05/24 07:32 codeine [CODEINE] AdvReac Intermediate VOMITING Verified 12/05/24 07:32 VICRYL Allergy Severe IT Uncoded 12/02/23 10:52 WOULDN'T HEAL - SHOULD NEVER EVER BE USED IN [place] Exam Vital Signs (past 8 hours): - 12/05/24 07:37 Temperature 97.4 F L Pulse Rate 80 Respiratory Rate 16 Blood Pressure 164/82 H Pulse Oximetry 98 Narrative Exam Narrative: Gen: NAD, sitting comfortably in bed, appears well HEENT: Sclera are anicteric, head is normocephalic and atraumatic, trachea is midline. CV: RRR, no JVD Resp: clear to auscultation bilaterally, equal chest wall movement bilaterally Abd: soft, nontender, normoactive bowel sounds Ext: no edema, full range of motion Neuro: Cranial nerves II-XII grossly intact, no focal deficits Skin: No erythema or ecchymosis Assessment & Plan Assessment and plan (1) Colon cancer screening: Status: Acute Assessment & Plan narrative: Patient presents for colonoscopy Risks, benefits, alternatives to colonoscopy explained, including but not limited to bowel perforation or other serious complication requiring surgery at less than 1 in 5000 colonoscopies, abdominal pain, cramping or bleeding and less than 1% of colonoscopies, and the chances that we find a diagnosis that would require further intervention of about 2%. Patient agrees to proceed. Time-Based Coding :: [TOTAL MINUTES] spent with patient and on the chart (including review of chart, obtaining history, exam, reviewing outside data, placing orders, documenting exam and treatment plan, and counseling patient) on [DATE]. [employer] Facilitator Document charge(s): No
--- NOTE | 2024-12-05 08:26 | SUR.OPER ---
TO CECUM [id number]
--- NOTE | 2024-12-05 08:37 | PM.OP.COLON ---
Operative Date/Time/Diagnoses Date of procedure: 12/05/24 Time of procedure: 08:37 Pre-op diagnosis: Colon screening Post-op diagnosis: same (Sigmoid polyps x2) Procedure & Clinicians Study performed: Colonoscopy with cold snare polypectomy of sigmoid polyps x2 Same procedure as scheduled: Yes Indications: Colon screening Surgeon: Jase Huang Procedure Notes SCOAP/Timeout: Performed Procedure in detail: Time-out was performed. Mac was induced. Patient was placed in left lateral decubitus position. The perineum was inspected without any gross abnormality. Lubricated pediatric colonoscope was inserted and advanced to the cecum. The terminal ileum was intubated. The colonoscope was withdrawn slowly inspecting the circumference of the colon. Two small, sessile polyps were noted in the sigmoid colon. These were removed with cold snare polypectomy completely and retrieved. Very small polyps may have been missed, prep quality was adequate. Retroflexed view of the rectum showed small, non prolapsed nonbleeding internal hemorrhoids. The scope was withdrawn the patient was taken to PACU in good condition. Scope withdrawal time: 10 Findings: polyp(s) Specimen(s): other (Sigmoid polyps x2) Complications: none Impression: 9 polyps Post-procedure Recommendations: Colonoscopy in 10 years (Next colonoscopy in 7 years if an exceptionally good health at age 81) Follow up: as needed Disposition: PACU
[2024-12-05 08:38] VITALS: BP 85/44; PULSE 73; RESP 11; TEMP 36.2; O2SAT 91
[2024-12-05 08:43] VITALS: BP 91/43; PULSE 68; RESP 12; O2SAT 96
[2024-12-05 08:47] VITALS: BP 105/53; PULSE 67; RESP 16; TEMP 36.2; O2SAT 97
[2024-12-05 08:54] VITALS: BP 109/60; PULSE 62; RESP 12; TEMP 36.2; O2SAT 97
== END 2024-12-05 09:15 | disposition home or self-care (01) ==
PROVIDERS: PCP Family Medicine; Referring Provider Surgery; Visit Provider Surgery
PROC: 0DJD8ZZ Inspection of Lower Intestinal Tract, Via Natural or Artificial Opening Endoscopic (ICD-10-PCS; CPT 45378; principal; 2024-12-05 08:15)
DX: Z12.11 Encounter for screening for malignant neoplasm of colon (principal); K64.8 Other hemorrhoids; K63.5 Polyp of colon
CPT/HCPCS: 45385; J2704

== ENCOUNTER → 2024-12-25 07:59 | Outpatient (CLI) | payer MEDICARE, SELFPAY ==
[2024-12-25 08:53] LABS: Cholesterol 218 mg/dL (140-199); HDL Cholesterol 57 mg/dL (40-60); LDL Cholesterol Calculated 124 mg/dL (<100); Triglycerides 183 mg/dL (35-150)
[2024-12-26 04:11] LABS: Apolipoprotein B 106 mg/dL (<90)
[2024-12-26 05:11] LABS: Rubeola Measles IgG > 300.0 AU/mL (Immune >16.4)
[2024-12-26 13:10] LABS: Mumps Virus IgG Antibody <9.0 AU/mL (Immune >10.9)
== END ==
PROVIDERS: PCP Family Medicine; Referring Provider Family Medicine; Visit Provider Family Medicine
DX: Z00.00 Encounter for general adult medical examination without abnormal findings (principal); I10 Essential (primary) hypertension; Z01.84 Encounter for antibody response examination; G60.9 Hereditary and idiopathic neuropathy, unspecified; E78.5 Hyperlipidemia, unspecified; E05.90 Thyrotoxicosis, unspecified without thyrotoxic crisis or storm
CPT/HCPCS: 36415; 80061; 82172; 86735; 86762; 86765

== ENCOUNTER → 2025-07-02 11:28 | Outpatient (CLI) | payer MEDICARE, SELFPAY ==
--- NOTE | 2025-07-02 11:30 | DI.RAD.S_ITS ---
PROCEDURE: XR FOOT LT MIN 3V INDICATIONS: pain @ 1 and 2 MTP joints TECHNIQUE: 3 views of the foot were acquired. COMPARISON: None. FINDINGS: Bones: No fractures or dislocations. No suspicious bony lesions. Soft tissues: No tibiotalar joint effusion. Achilles tendon appears normal. IMPRESSION: No acute bony abnormality. If symptoms persist with conservative management, consider cross-sectional imaging such as CT or MRI. Approved by: Padma Burgess M.D.,Ph.D. on 07/02/2025 at 14:54
== END ==
PROVIDERS: Family Provider Family Medicine; PCP Family Medicine; Referring Provider Physician Assistant; Visit Provider Physician Assistant
DX: M79.672 Pain in left foot (principal)
CPT/HCPCS: 73630

== ENCOUNTER 2025-08-06 14:30 | Outpatient (RCR) | payer MEDICARE, SELFPAY ==
--- NOTE | 2025-06-04 17:25 | PT.OPPOC ---
Physical, Occupational & Speech Therapy At [facility] Current Diagnoses Hereditary and idiopathic neuropathy, unspecified (06/04/25) Unsteadiness on feet (06/04/25) Weakness (06/04/25) Visit Care Team Role Provider Type José Mccain MD Attending Provider Physician Family Provider Primary Care Provider Referring Provider Specialty: Family Practice Address: [address] [place] [address], [facility] Email: [email or web address] Plan Of Care PT OP: Balance, Vestibular, Neuro Start: 06/04/25 09:01 Freq: Status: Active Protocol: Document 06/04/25 09:01 SAK (Rec: 06/04/25 09:47 SAK Laptop) Out-Patient Physical Therapy Visit Information Visit Information Visit Type Initial Evaluation Visit Start Time 09:02 Visit Stop Time 09:45 Visit Number 1 Number of MACHINE STRAP BUCKLER Visits 0 Evaluation Information Evaluation Date 06/04/25 Precautions Precautions vasovagal syndrome; prone to fainting especially after prolonged sitting HTN, drops when stands up Current Condition History of Current Condition Onset Date 2 years Current Complaints legs are exhausted, decreased balance History of Current progressive worsening weakness and balance dysfunction. Condition Started PT at [facility] in [facility] a couple years ago, then PT got sick and she went traveling, never resumed. States poor balance especially with eyes closed. Has not fallen. No regular exercise of any kind. Reports after standing for about 2 min legs start to feel weak. States legs feel swollen and numbness in sock distribution. Not diabetic. Treatment Goals Patient/Caregiver improve balance and strength. Goals Personal Factors Other Personal Not in routine of doing any exercise Factors That May Effect Therapy/ Recovery Patient Questionnaires ABC- Activity Specific Balance Confidence Scale ABC Score 68 OP-PT Pain Assessment Location Bilateral Leg Pain Intensity 0 Jordan Balance Assessment Evaluation Sitting to Standing Independent w/out Hands Ability Unsupported Stance Safely- 2 minutes Sitting Unsupported, Safely- 2 minutes Feet on Floor Standing to Sitting Safely, Minimal Hand Use Ability Transfer Ability Safely, Hand Use Unsupported Stance- Supervision, 10 seconds Eyes Closed Unsupported Stance- Independent, 1 minute Eyes Open Reaching Forward Confidently, 10 inches Standing Pick- Up Object From Independent/Safe Floor Look Behind Shoulder Shifts Weight Unilateral - Standing Turning 360 Degrees Turns Bilateral, < 4 secs Unsupported Stance, (I)- 8 Steps in 20 secs Alternating Feet on Stair Unsupported Tandem Balance Lost- Step/Stand Stance Unilateral Leg Unable,assist to not fall Stance Total Score Jordan Total Score ( 45 out of 56 points) Functional Tests Dynamic Gait Index (DGI) Score 17/24 Timed Up and Go (TUG) Score 11 OP Gait Assessment Gait Gait Assistance Independent Required: Assistive Devices Assistive Device None Gait Deviations General Gait Pattern Decreased Stride Length,Decreased Feet Clearance Comments Gait Comments hesitancy Stair Climbing Evaluation Evaluation Level of Assist On Independent Stairs Devices Stair Climbing Left Railing,Right Railing Assistive Devices Technique/Endurance Stair Climbing Ascend and Descend Direction Stair Climbing Step Over Step,Step to Step Technique Sensation Evaluation Gross Sensation Gross Sensation Left LE Impaired,Right LE Impaired Sensation Paresthesia Description Lumbar Spine Range of Motion Lumbar Spine Active Comments WFL Hip Goniometric Range of Motion Hip Measured in Degrees shubham Hip ROM WFL Yes Knee Goniometric Range of Motion Knee Measured in Degrees shubham Knee ROM WFL Yes Ankle and Foot Goniometric Range of Motion Ankle and Foot Measured in Degrees shubham Ankle/Foot ROM WFL No Dorsiflexion with 5 Knee Flexed Dorsiflexion with 0 Knee Extended Hip Strength Hip Manual Muscle Testing Left Flexion (L2) 4- Good- Extension (S1) 3+ Fair+ Abduction 3+ Fair+ Adduction 4- Good- External Rotation 4- Good- Internal Rotation 4- Good- Right Flexion (L2) 4 Good Extension (S1) 3+ Fair+ Abduction 4- Good- Adduction 4 Good External Rotation 4- Good- Internal Rotation 4 Good Knee Strength Knee Manual Muscle Testing Left Flexion (S2) 4 Good Extension (L3) 4 Good Right Flexion (S2) 5 Normal Extension (L3) 5 Normal Ankle/Foot Strength Ankle and Foot Manual Muscle Testing Left Dorsiflexion (L4) 4- Good- Plantarflexion (S1) 4- Good- Right Dorsiflexion (L4) 5 Normal Plantarflexion (S1) 5 Normal Self-Care/Home Management Treatment Education Patient Education Home Exercise Program Physical Therapy Assessment Rehab Potential Rehabilitation Good Potential Evaluation Complexity Number of Personal 1-2 Factors/ Comorbidities Clinical Evolving Presentation at Evaluation Impairments Impairments Activity Tolerance,Balance,Strength Goals Three Impairment LE weakness left greater than right Short Term Goal (STG Patient will be able to demonstrate 75% of HEP without ) cues STG Duration 07/04/25 Coding Director Goal (LTG) Patient will be independent and compliant with HEP and demonstrate improvement in strength to at least 4+/5 all LE muscle groups LTG Duration 09/03/25 Two Impairment dynamic gait index 17/24 Coding Director Goal (LTG) Improve score to at least 22/24 as measure of improved gait safety LTG Duration 09/03/25 One Impairment Jordan Balance Score 45/56 Nursing Home Goal (LTG) Improve Jordan Balance score to at least 53/56 as measure of improved balance and decreased risk of falls LTG Duration 09/03/25 Assessment Summary Assessment Patient presents to PT with function-limiting weakness and balance dysfunction; gradual onset starting about 2 years ago. Patient does not do any usual exercise. She has sensory impairment in stocking distribution shubham LE's with decreased proprioception. Weakness shubham LE's left greater than right. Feel she would benefit highly from PT for strengthening, balance retraining. Initiated ther ex today with patient education for HEP and was issued written HO. POC was discussed and patient was in agreement. Physical Therapy Plan Frequency and Duration Frequency of 2x/Week Treatment Duration of 12 treatment (weeks) Plan of Care Start 06/04/25 Date Plan of Care End 07/04/25 Date Therapeutic Interventions Therapeutic Balance Training,Gait Training,Home Exercise Program, Interventions Manual Therapy,Patient/Caregiver Education,Self-Care/ Home Management,Therapeutic Activities,Therapeutic Exercises Next Visit Focus/Plan Next Note Type Treatment Note Next Visit Plan Review HEP, work on LE strengthening, balance retraining. Plan of Care Dates Plan of Care Start Date 06/04/25 Plan of Care End Date 07/04/25 Electronically Signed by: Diana Garsia, PT 06/04/25 [id number] If you are in agreement with this Plan of Care, please return a signed and dated copy. I have reviewed this Plan of Care and certify that the skilled therapy services above are required to meet the patient?s needs. Physician Signature Date Printed Name and Credentials Clinical Instructor Signature Printed Name and Credentials
--- NOTE | 2025-06-08 11:15 | PT.OTN ---
Current Diagnoses Hereditary and idiopathic neuropathy, unspecified (06/08/25) Unsteadiness on feet (06/08/25) Weakness (06/08/25) Physical Therapy Treatment Note PT OP: Balance, Vestibular, Neuro Start: 06/04/25 09:01 Freq: Status: Active Protocol: Document 06/08/25 08:07 WANDA (Rec: 06/08/25 09:02 WANDA Laptop) Out-Patient Physical Therapy Visit Information Visit Information Visit Type Treatment Note Visit Start Time 08:15 Visit Stop Time 08:55 Visit Number 2 Number of COMB FIXER Visits 0 Precautions Precautions vasovagal syndrome; prone to fainting especially after prolonged sitting HTN, drops when stands up Current Condition History of Current Condition Onset Date 2 years Current Complaints legs are exhausted, decreased balance History of Current progressive worsening weakness and balance dysfunction. Condition Started PT at [facility] in [facility] a couple years ago, then PT got sick and she went traveling, never resumed. States poor balance especially with eyes closed. Has not fallen. No regular exercise of any kind. Reports after standing for about 2 min legs start to feel weak. States legs feel swollen and numbness in sock distribution. Not diabetic. OP-PT Subjective Patient Comments Patient Comments Has some questions about her HEP, brought written HO to PT. Gym Equipment Shuttle Recovery Unilateral Squats Reps/Time next session Bilateral Squats Reps/Time next session Therapeutic Exercises Supine Exercises bridge Supine Exercise Name shubham and single Reps/Minutes 10x, 5x Sidelying Exercises hip ab Equipment Used wall Reps/Minutes 10x Comments cues for core activation, alignment Standing Exercises resisted sidestep Equipment Used L1 TB Reps/Minutes 10 ft x 2 Hip ext Reps/Minutes 10x toe raise Reps/Minutes 10x heel raise Reps/Minutes 10x Comments cues for slow, controlled Neuro Re-Education Treatment Balance Activities tandem stand Reps/Duration 30x 2 Comments pt ed for EO, EC, head turns, foam SLS Reps/Duration 30x2 Comments pt ed for EO, EC, head turns, foam foam stand Details WBOS, NBOS, eyes closed, head turns Equipment black foam tiltboard Details bal fwd/bck, side Reps/Duration 4 min Comments added head turns Self-Care/Home Management Treatment Education Other Education updated written HEP Physical Therapy Assessment Goals Three Impairment LE weakness left greater than right Short Term Goal (STG Patient will be able to demonstrate 75% of HEP without ) cues STG Duration 07/04/25 Halfway Goal (LTG) Patient will be independent and compliant with HEP and demonstrate improvement in strength to at least 4+/5 all LE muscle groups LTG Duration 09/03/25 Two Impairment dynamic gait index 17/24 Halfway Goal (LTG) Improve score to at least 22/24 as measure of improved gait safety LTG Duration 09/03/25 One Impairment Jordna Balance Score 45/56 Halfway Goal (LTG) Improve Jordan Balance score to at least 53/56 as measure of improved balance and decreased risk of falls LTG Duration 09/03/25 Assessment Summary Assessment Patient demonstrated improved understanding of HEP after review. Added to HEP with updated HEP issued. Patient fatigued after treatment. States she doesn't have any further appts scheduled until June, will continue with HEP. Physical Therapy Plan Frequency and Duration Frequency of 2x/Week Treatment Duration of 12 treatment (weeks) Plan of Care Start 06/04/25 Date Plan of Care End 07/04/25 Date Next Visit Focus/Plan Next Note Type Treatment Note Next Visit Plan Continue balance and strengthening.
--- NOTE | 2025-06-29 10:41 | PT.OTN ---
Current Diagnoses Hereditary and idiopathic neuropathy, unspecified (06/29/25) Unsteadiness on feet (06/29/25) Weakness (06/29/25) Physical Therapy Treatment Note PT OP: Balance, Vestibular, Neuro Start: 06/04/25 09:01 Freq: Status: Active Protocol: Document 06/29/25 09:47 SAK (Rec: 06/29/25 10:41 SAK Laptop) Out-Patient Physical Therapy Visit Information Visit Information Visit Type Treatment Note Visit Start Time 09:48 Visit Stop Time 10:28 Visit Number 3 Number of HEALTH RESEARCHER Visits 0 Precautions Precautions vasovagal syndrome; prone to fainting especially after prolonged sitting HTN, drops when stands up Current Condition History of Current Condition Onset Date 2 years Current Complaints legs are exhausted, decreased balance History of Current progressive worsening weakness and balance dysfunction. Condition Started PT at [facility] in [place] a couple years ago, then PT got sick and she went traveling, never resumed. States poor balance especially with eyes closed. Has not fallen. No regular exercise of any kind. Reports after standing for about 2 min legs start to feel weak. States legs feel swollen and numbness in sock distribution. Not diabetic. OP-PT Subjective Patient Comments Patient Comments Went apple picking on uneven terrain, felt stronger and better balanced. States single leg bridge hurts neck, not sure why, wants to review. Has stopped doing. Did exercises while on vacation. Cardio Equipment Elliptical Duration (Minutes) 3 Resistance 1 Recumbent Elliptical (NuStep) Duration (Minutes) 5 Resistance 1 Seat Position 5 Other .23 miles Therapeutic Exercises Supine Exercises bridge Supine Exercise Name single Reps/Minutes 10x5 Comments partial lift Standing Exercises lunge Equipment Used chair, mirror Reps/Minutes 10x ea side squat Equipment Used chair, mirror Reps/Minutes 10x Comments partial Quad stretch Equipment Used chair Reps/Minutes 2x30 Neuro Re-Education Treatment Balance Activities tandem stand Equipment black foam Reps/Duration 30x 2 Comments pt ed for EO, EC, head turns, foam SLS Equipment black foam Reps/Duration 30x2 Comments pt ed for EO, EC, head turns, foam frequent UE use foam stand Details WBOS, NBOS, eyes closed, head turns Equipment black foam Self-Care/Home Management Treatment Education Patient Education Body Mechanics,Home Exercise Program,Posture Physical Therapy Assessment Goals Three Impairment LE weakness left greater than right Short Term Goal (STG Patient will be able to demonstrate 75% of HEP without ) cues STG Duration 07/04/25 Operator Maintainer Goal (LTG) Patient will be independent and compliant with HEP and demonstrate improvement in strength to at least 4+/5 all LE muscle groups LTG Duration 09/03/25 Two Impairment dynamic gait index 17/24 Alf Goal (LTG) Improve score to at least 22/24 as measure of improved gait safety LTG Duration 09/03/25 One Impairment Jordan Balance Score 45/56 Operator Maintainer Goal (LTG) Improve Jordan Balance score to at least 53/56 as measure of improved balance and decreased risk of falls LTG Duration 09/03/25 Progress Towards Goals Progress Towards Progressing Toward Goals Goals Assessment Summary Assessment Patient has difficulty with her bal with partial squats and has difficulty feeling quads activate. Req UE support for bal with both partial squats and partial lunge. Problem solved single leg bridge to less lift with patient reporting no neck pain. Functional improvement noted in balance when picked apples. Compliant to HEP Physical Therapy Plan Frequency and Duration Frequency of 2x/Week Treatment Duration of 12 treatment (weeks) Plan of Care Start 06/04/25 Date Plan of Care End 07/04/25 Date Therapeutic Interventions Therapeutic Balance Training,Gait Training,Home Exercise Program, Interventions Manual Therapy,Patient/Caregiver Education,Self-Care/ Home Management,Therapeutic Activities,Therapeutic Exercises Next Visit Focus/Plan Next Note Type Treatment Note Next Visit Plan Continue balance and strengthening.
--- NOTE | 2025-07-13 16:41 | PT.OPPOC ---
Physical, Occupational & Speech Therapy At [facility] Current Diagnoses Hereditary and idiopathic neuropathy, unspecified (07/13/25) Unsteadiness on feet (07/13/25) Weakness (07/13/25) Visit Care Team Role Provider Type José Mccain MD Attending Provider Physician Family Provider Primary Care Provider Referring Provider Specialty: Family Practice Address: [address] [place] [address], [facility] Email: [email or web address] Plan Of Care PT OP: Balance, Vestibular, Neuro Start: 06/04/25 09:01 Freq: Status: Active Protocol: Document 07/13/25 09:37 SAK (Rec: 07/13/25 10:44 SAK Laptop) Out-Patient Physical Therapy Visit Information Visit Information Visit Type Treatment Note Visit Start Time 09:45 Visit Stop Time 10:28 Visit Number 4 Number of FLEET MANAGER/DISPATCH Visits 0 Precautions Precautions vasovagal syndrome; prone to fainting especially after prolonged sitting HTN, drops when stands up Current Condition History of Current Condition Onset Date 2 years Current Complaints legs are exhausted, decreased balance History of Current progressive worsening weakness and balance dysfunction. Condition Started PT at [facility] in [facility] a couple years ago, then PT got sick and she went traveling, never resumed. States poor balance especially with eyes closed. Has not fallen. No regular exercise of any kind. Reports after standing for about 2 min legs start to feel weak. States legs feel swollen and numbness in sock distribution. Not diabetic. OP-PT Subjective Patient Comments Patient Comments Saw physician about persistent left foot pain; has had since landing funny while going down stairs. Taking Ibuprofen. Wider toe box shoes recommended by physician, hasn't gotten. Therapeutic Exercises Sitting Exercises toe flex/ext Reps/Minutes 10x toe spread Reps/Minutes 10x Hot Pack/Cold Pack Treatment Ice Massage Location 2nd/3rd MTP Ultrasound Therapy Treatment Left Foot Patient Position Supine Frequency Setting ( 3 mHz) Mode Setting Pulsed Duty Cycle 50% Intensity Setting (w 1.0 /cm2) Comments plantar MTP 2-3 Physical Therapy Assessment Goals Four Impairment left foot pain 7/10 limiting activity Hotel Engineer Goal (LTG) Decrease pain to no greater than 2/10 with all usual activity LTG Duration 12/11/25 Three Impairment LE weakness left greater than right Short Term Goal (STG Patient will be able to demonstrate 75% of HEP without ) cues 07/13/25: has only been able to do supine and seated exercises due to left foot pain, though goal met for supine and seated ex. STG Duration goal met Alf Goal (LTG) Patient will be independent and compliant with HEP and demonstrate improvement in strength to at least 4+/5 all LE muscle groups LTG Duration 09/03/25 Two Impairment dynamic gait index 17/24 Hotel Engineer Goal (LTG) Improve score to at least 22/24 as measure of improved gait safety 07/13/25: goal not met, unable to test due to left foot pain LTG Duration 09/03/25 One Impairment Jordan Balance Score 45/56 Hotel Engineer Goal (LTG) Improve Jordan Balance score to at least 53/56 as measure of improved balance and decreased risk of falls 07/13/25: not able to test due to left foot pain LTG Duration 09/03/25 Assessment Summary Assessment Patient progress limited due to onset of left foot pain after landing wrong when coming down stairs. x-ray of foot negative. 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 Trial ultrasound and iontophoresis left foot to decrease pain and inflammation. Physical Therapy Plan Frequency and Duration Frequency of 2x/Week Treatment Duration of 8 treatment (weeks) Plan of Care Start 07/04/25 Date Plan of Care End 09/03/25 Date Therapeutic Interventions Therapeutic Balance Training,Gait Training,Home Exercise Program, Interventions Manual Therapy,Patient/Caregiver Education,Self-Care/ Home Management,Therapeutic Activities,Therapeutic Exercises Next Visit Focus/Plan Next Note Type Treatment Note Next Visit Plan evaluate response to today's treatment. Consider KT tape to left foot. Resume weight-bearing exercises for balance as able, possibly on foam with no shoes. Plan of Care Dates Plan of Care Start Date 07/04/25 Plan of Care End Date 09/03/25 Electronically Signed by: Diana Garsia, PT 07/13/25 5627 If you are in agreement with this Plan of Care, please return a signed and dated copy. I have reviewed this Plan of Care and certify that the skilled therapy services above are required to meet the patient?s needs. Physician Signature Date Printed Name and Credentials Clinical Instructor Signature Printed Name and Credentials
--- NOTE | 2025-07-21 10:42 | PT.OTN ---
Current Diagnoses Hereditary and idiopathic neuropathy, unspecified (07/21/25) Unsteadiness on feet (07/21/25) Weakness (07/21/25) Physical Therapy Treatment Note PT OP: Balance, Vestibular, Neuro Start: 06/04/25 09:01 Freq: Status: Active Protocol: Document 07/21/25 09:47 SAK (Rec: 07/21/25 10:42 SAK Laptop) Out-Patient Physical Therapy Visit Information Visit Information Visit Type Treatment Note Visit Start Time 09:45 Visit Stop Time 10:28 Visit Number 5 Number of BOX MAKER Visits 0 Precautions Precautions vasovagal syndrome; prone to fainting especially after prolonged sitting HTN, drops when stands up Current Condition History of Current Condition Onset Date 2 years Current Complaints legs are exhausted, decreased balance History of Current progressive worsening weakness and balance dysfunction. Condition Started PT at [facility] in [facility] a couple years ago, then PT got sick and she went traveling, never resumed. States poor balance especially with eyes closed. Has not fallen. No regular exercise of any kind. Reports after standing for about 2 min legs start to feel weak. States legs feel swollen and numbness in sock distribution. Not diabetic. OP-PT Subjective Patient Comments Patient Comments REports much better, just a little aching in foot. Did ice at home per recommendation. Cardio Equipment Recumbent Elliptical (NuStep) Duration (Minutes) 5 Resistance 1 Seat Position 5 Other .19 miles Therapeutic Exercises Standing Exercises squat Equipment Used chair, mirror, black foam Reps/Minutes 10x Comments partial Neuro Re-Education Treatment Balance Activities tandem stand Equipment black foam Reps/Duration 30x 2 Comments pt ed for EO, EC, head turns, foam SLS Equipment black foam Reps/Duration 30 Comments increase left foot pain, discontinued foam stand Details WBOS, NBOS, eyes closed, head turns Equipment black foam Self-Care/Home Management Treatment Education Other Education don't do SLS at this time Iontophoresis Treatment left foot Treatment Medication dexamethasone Medication Amount ( 1 mL) (ml) Medication Dosage 1 mg/ml Patient Tolerance Good Ultrasound Therapy Treatment Left Foot Patient Position Supine Frequency Setting ( 3 mHz) Mode Setting Pulsed Duty Cycle 50% Intensity Setting (w 1.0 /cm2) Comments plantar MTP 2-3 Physical Therapy Assessment Goals Four Impairment left foot pain 7/10 limiting activity Detention Goal (LTG) Decrease pain to no greater than 2/10 with all usual activity LTG Duration 12/11/25 Three Impairment LE weakness left greater than right Short Term Goal (STG Patient will be able to demonstrate 75% of HEP without ) cues 07/13/25: has only been able to do supine and seated exercises due to left foot pain, though goal met for supine and seated ex. STG Duration goal met Academic Affairs Manager Goal (LTG) Patient will be independent and compliant with HEP and demonstrate improvement in strength to at least 4+/5 all LE muscle groups LTG Duration 09/03/25 Two Impairment dynamic gait index 17/24 Academic Affairs Manager Goal (LTG) Improve score to at least 22/24 as measure of improved gait safety 07/13/25: goal not met, unable to test due to left foot pain LTG Duration 09/03/25 One Impairment Jordan Balance Score 45/56 Detention Goal (LTG) Improve Jordan Balance score to at least 53/56 as measure of improved balance and decreased risk of falls 07/13/25: not able to test due to left foot pain LTG Duration 09/03/25 Assessment Summary Assessment Patient reported min pain in foot this am, did ok with balance ex until trial SLS, increase in pain. Physical Therapy Plan Frequency and Duration Frequency of 2x/Week Treatment Duration of 8 treatment (weeks) Plan of Care Start 07/04/25 Date Plan of Care End 09/03/25 Date Therapeutic Interventions Therapeutic Balance Training,Gait Training,Home Exercise Program, Interventions Manual Therapy,Patient/Caregiver Education,Self-Care/ Home Management,Therapeutic Activities,Therapeutic Exercises Next Visit Focus/Plan Next Note Type Treatment Note Next Visit Plan Continue PT for balance as tolerated, continue modalities as needed.
--- NOTE | 2025-08-06 15:33 | PT.OTN ---
Current Diagnoses Hereditary and idiopathic neuropathy, unspecified (08/06/25) Unsteadiness on feet (08/06/25) Weakness (08/06/25) Physical Therapy Treatment Note PT OP: Balance, Vestibular, Neuro Start: 06/04/25 09:01 Freq: Status: Active Protocol: Document 08/06/25 14:35 AB (Rec: 08/06/25 15:32 AB [id number]) Out-Patient Physical Therapy Visit Information Visit Information Visit Type Treatment Note Visit Note [email or web address] Code: [email or web address] Visit Start Time 14:35 Visit Stop Time 15:18 Visit Number 6 Number of SCREW MACHINE SETTER Visits 1 Progress Note Due 08/12/25 Precautions Precautions vasovagal syndrome; prone to fainting especially after prolonged sitting HTN, drops when stands up OP-PT Subjective Patient Comments Patient Comments Patient reports she had a Huynh's Neuroma which makes putting weight on the left foot persists, and patient is concerned she will re aggravate it by putting too much weight on it. Patient reports she was advised to rest and ice. Patient reports having no pain start of session L foot ambulating into session with out device. Gym Equipment Shuttle Balance red Details Normal MINDA w/ head turns, then Stagger Reps/Duration 3 min Therapeutic Exercises Sitting Exercises seated hip abd with band Side bilateral Resistance level 3 band Reps/Minutes one min X 1 Comments verbal cues Standing Exercises calf stretch Standing Exercise on TANESHA gastroc and soleus Name Reps/Minutes 60 sec each stretch each LE Comments verbal cues unable to perform soleus without sensation TC area squat Standing Exercise to chair then on foam in // bars CGA 1/2 to chair Name Reps/Minutes 10x each version Comments CGA unsteadl resisted sidestep Resistance level 3 band Reps/Minutes 10 ft L and R x 2 Comments VC for avoiding toeing out. heel raise Standing Exercise with UE use Name Reps/Minutes X 8 Comments Verbal cues to lower heels to floor slowly Manual Therapy Treatment Consent Patient gave verbal Yes consent for manual treatment Joint Mobilizations MWM TC mobilization Direction ap Grade III Body Position Standing Reps/Duration X 10 X 2 each LE Neuro Re-Education Treatment Balance Activities foam stand Details Romberg and stagger, eyes closed, head turns Equipment black foam Reps/Duration 5 min Physical Therapy Assessment Goals Four Impairment left foot pain 04/02 limiting activity Career Consultant Goal (LTG) Decrease pain to no greater than 2/10 with all usual activity LTG Duration 09/03/25 Three Impairment LE weakness left greater than right Short Term Goal (STG Patient will be able to demonstrate 75% of HEP without ) cues 07/13/25: has only been able to do supine and seated exercises due to left foot pain, though goal met for supine and seated ex. STG Duration goal met Career Consultant Goal (LTG) Patient will be independent and compliant with HEP and demonstrate improvement in strength to at least 4+/5 all LE muscle groups LTG Duration 09/03/25 Two Impairment dynamic gait index Career Consultant Goal (LTG) Improve score to at least 22/24 as measure of improved gait safety 07/13/25: goal not met, unable to test due to left foot pain LTG Duration 09/03/25 One Impairment Jordan Balance Score 45/56 [facility] Goal (LTG) Improve Jordan Balance score to at least 53/56 as measure of improved balance and decreased risk of falls 07/13/25: not able to test due to left foot pain LTG Duration 09/03/25 Assessment Summary Assessment No complaints of pain throughout session, but patient expresses concern about standing on one leg, verbalizes she would like to avoid activities/ex that would require standing on one leg. Physical Therapy Plan Frequency and Duration Frequency of 2x/Week Treatment Duration of 8 treatment (weeks) Plan of Care Start 07/04/25 Date Plan of Care End 09/03/25 Date Next Visit Focus/Plan Next Note Type Treatment Note Next Visit Plan Continue PT for balance as tolerated, continue modalities as needed.
--- NOTE | 2025-08-27 16:27 | PT.OPDS ---
Current Diagnoses Hereditary and idiopathic neuropathy, unspecified (08/06/25) Unsteadiness on feet (08/06/25) Weakness (08/06/25) Visit Care Team Role Provider Type José Mccain MD Attending Provider Physician Family Provider Primary Care Provider Referring Provider Specialty: Family Practice Address: [address] [place] [address], [id number] Email: [email or web address] Visit Number Visit Number 6 Discharge Summary PT OP: Balance, Vestibular, Neuro Start: 06/04/25 09:01 Freq: Status: Active Protocol: Document 08/27/25 16:24 SAK (Rec: 08/27/25 16:26 SAK Laptop) Out-Patient Physical Therapy Visit Information Visit Information Visit Type Discharge Summary OP-PT Subjective Patient Comments Patient Comments pt. requests discharge from PT per phone call to front office staff. Physical Therapy Assessment Goals Four Impairment left foot pain 7/10 limiting activity Health Physicist Goal (LTG) Decrease pain to no greater than 2/10 with all usual activity LTG Duration 09/03/25 Three Impairment LE weakness left greater than right Short Term Goal (STG Patient will be able to demonstrate 75% of HEP without ) cues 07/13/25: has only been able to do supine and seated exercises due to left foot pain, though goal met for supine and seated ex. STG Duration goal met Nursing Home Goal (LTG) Patient will be independent and compliant with HEP and demonstrate improvement in strength to at least 4+/5 all LE muscle groups 08/27/25: unable to discharge assessment but was demonstrating improvement LTG Duration 09/03/25 Two Impairment dynamic gait index 17/24 Nursing Home Goal (LTG) Improve score to at least 22/24 as measure of improved gait safety 07/13/25: goal not met, unable to test due to left foot pain 08/27/25: again unable to do discharge assessment LTG Duration 09/03/25 One Impairment Jordan Balance Score 45/56 Nursing Home Goal (LTG) Improve Jordan Balance score to at least 53/56 as measure of improved balance and decreased risk of falls 07/13/25: not able to test due to left foot pain 08/27/25: unable to do discharge assessment LTG Duration 09/03/25 Physical Therapy Plan Discharge Physical Therapy Discharge Reasons Patient Request
== END 2025-08-31 12:49 | disposition home or self-care (01) ==
LOC: PHYS 14:30
PROVIDERS: Family Provider Family Medicine; PCP Family Medicine; Referring Provider Family Medicine; Visit Provider Family Medicine
DX: G60.9 Hereditary and idiopathic neuropathy, unspecified (principal); R26.81 Unsteadiness on feet; R53.1 Weakness
CPT/HCPCS: 97035; 97110; 97112; 97140; 97535

== ENCOUNTER 2025-09-01 09:25 | Emergency (ER) | payer MEDICARE, SELFPAY ==
[2025-09-01] VITALS (7 sets, daily range): BP systolic 145–181; BP diastolic 65–81; PULSE 95–102; RESP 24; TEMP 37.6; O2SAT 95–100; BMI 28.1
--- NOTE | 2025-09-01 09:34 | ED.NECK ---
HPI - Neck Pain/Injury General Chief Complaint: Shortness of Breath/Dyspnea Stated Complaint: SOB Time Seen by Provider: 09/01/25 09:30 History of Present Illness HPI Narrative: Patient here for sore throat, brought in by ambulance from walk-in clinic. Six days of sore throat but then had shortness of breath today. Has history of asthma. DuoNeb given by EMS on route here. Patient has hoarse voice. Patient states breathing treatment has helped. Lungs are clear. Trachea is midline. Patient able to speak comfortably. No drooling. Airway intact. History of tonsillectomy Related Data Home Medications ?Medication ?Instructions ?Recorded ?Confirmed iwkoqsnq-ngyzgwp-yngv-lutein tablet mcg PO DAILY 10/17/18 09/01/25 metronidazole 0.75 % topical cream 1 applic topical BID 01/31/22 09/01/25 psyllium husk [Fiber (psyllium PO 01/31/22 09/01/25 husk)] methimazole 5 mg tablet 2.5 mg PO .QOD 11/29/23 09/01/25 Previous Rx's ?Medication ?Instructions ?Recorded amlodipine 2.5 mg tablet 2.5 mg PO DAILY #90 tabs 02/10/25 lisinopril 2.5 mg tablet 2.5 mg PO DAILY #90 tabs 02/10/25 atorvastatin 20 mg tablet 20 mg PO DAILY #90 tabs 04/27/25 methylprednisolone 4 mg tablets in See Rx Instructions PO .COMPLEX 09/01/25 a dose pack (Medrol (Shane)) #21 ea albuterol sulfate 90 mcg/actuation 2 puff inhalation Q6H PRN 09/02/25 aerosol inhaler shortness of breath or wheezing #8.5 grams Allergies Allergy/AdvReac Type Severity Reaction Status Date / Time chlorhexidine Allergy Intermediate Rash Verified 09/01/25 09:35 codeine (CODEINE) AdvReac Intermediate VOMITING Verified 09/01/25 09:35 VICRYL Allergy Severe IT Uncoded 09/01/25 09:35 WOULDN'T HEAL - SHOULD NEVER EVER BE USED IN ME Review of Systems Review of Systems Narrative: GENERAL: Negative chills, fatigue, malaise, fever, sweats. HEENT: Negative sinus pain, ear pain, positive sore throat RESPIRATORY: Positive dyspnea, cough CARDIOVASCULAR: Negative chest pain, palpitations GASTROINTESTINAL: Negative vomiting, nausea, abdominal pain : Negative dysuria, frequency, hematuria MUSCULOSKELETAL: Negative muscle or bony pain SKIN: Negative rash, skin lesions NEUROLOGIC: Negative weakness, numbness ROS Unobtainable: All systems reviewed & are unremarkable except as noted in HPI and below Patient History Medical History (Updated 09/01/25 @ 12:36 by Valerio Cordero MD) Colon cancer screening Numbness in feet Medicare annual wellness visit, initial Finger joint swelling Hyperlipidemia Surgical History Status post breast lumpectomy Family History Father Smoker Mother Non-ST elevation (NSTEMI) myocardial infarction End stage renal disease Social History second hand exposure: No alcohol intake: current substance use type: does not use Exam Narrative Exam Narrative: GENERAL: in no distress, not toxic not dyspneic HEAD: Normocephalic. EYES: Pupils equal round ENT: Mucous membranes moist. No malocclusion or trismus. No tongue elevation or drooling. There is symmetric bilateral pharyngeal erythema. Uvula midline. No exudates. NECK: Trachea midline. No stridor CARDIOVASCULAR: Regular rate and rhythm RESPIRATORY: Clear to auscultation. Breath sounds equal bilaterally. No wheezes, rales, or rhonchi. Patient just had breathing treatment by EMS. Speaking comfortably. GASTROINTESTINAL: Abdomen soft, BACK: No flank tenderness. EXTREMITIES: No gross deformities. NEURO: AOx4. Clear speech SKIN: Warm and dry PSYCH: Not anxious, is cooperative Initial Vital Signs Initial Vital Signs: Vital Signs Temperature 99.7 F H 09/01/25 09:35 Pulse Rate 100 H 09/01/25 09:35 Respiratory Rate 24 09/01/25 09:35 Blood Pressure 181/81 H 09/01/25 09:35 Pulse Oximetry 100 09/01/25 09:35 Oxygen Delivery Method Room Air 09/01/25 09:35 Course Orders Ordered: Discontinued Medications Dexamethasone 20 mg/ Sodium (Chloride) 52 mls @ 208 mls/hr IV NOW ONE Stop: 09/01/25 09:39 Last Infusion: 09/01/25 10:59 Dose: Infused Documented By: Admin: 09/01/25 09:57 Dose: 208 mls/hr Documented By: SHAMIR Sodium Chloride (Normal Saline 0.9%) 1,000 mls @ 1,000 mls/hr IV BOLUS ONE Stop: 09/01/25 10:37 Last Infusion: 09/01/25 11:00 Dose: Infused Documented By: Admin: 09/01/25 09:58 Dose: 1,000 mls/hr Documented By: SHAMIR Vital Signs Vital signs: Vital Signs - 8 hr 09/01/25 09:35 09/01/25 10:16 09/01/25 10:30 Temperature 99.7 F H Pulse Rate 100 H 98 H Respiratory Rate 24 Blood Pressure 181/81 H 170/72 H Pulse Oximetry 100 98 Oxygen Delivery Method Room Air 09/01/25 10:30 09/01/25 10:45 09/01/25 10:45 Temperature Pulse Rate 102 H 96 H Respiratory Rate Blood Pressure 159/72 H Pulse Oximetry 96 97 Oxygen Delivery Method 09/01/25 11:00 09/01/25 11:01 09/01/25 11:01 Temperature Pulse Rate 99 H 95 H Respiratory Rate Blood Pressure 168/70 H Pulse Oximetry 96 97 Oxygen Delivery Method MDM - Neck Pain/Injury Lab Data 09/01/25 09:20 09/01/25 09:20 Labs: Lab Results 09/01/25 09/01/25 09/01/25 Range/Units 09:20 10:10 10:27 WBC 5.1 (4.5-11.0) X10^3/uL RBC 5.11 (4.0-5.2) X10^6/uL Hgb 14.7 (12.0-16.0) g/dL Hct 43.6 (36-46) % MCV 85.2 (80-100) fL MCH 28.7 (26-34) PG MCHC 33.7 (30-36) % RDW 13.3 (11.6-14.8) % Plt Count 193 (150-400) X10^3/uL Neut % (Auto) 41.7 L (50-75) % Lymph % (Auto) 38.5 (25-40) % [place] % (Auto) 12.6 (3-14) % Eos % (Auto) 6.2 H (2-4) % Baso % (Auto) 1.0 (0-2) % Neut # (Auto) 2100 (2204-3370) /uL Lymph # (Auto) 2000 (9519-1357) /uL [place] # (Auto) 600 (0-900) /uL Eos # (Auto) 300 (0-450) /uL Baso # (Auto) 100 (0-100) /uL Sodium 141 (137-145) mmol/L Potassium 3.9 (3.4-5.1) mmol/L Chloride 108 H (98-107) mmol/L Carbon Dioxide 25 (22-32) mmol/L BUN 13 (7-17) mg/dL Creatinine 0.93 (0.52-1.04) mg/dL Estimated GFR > 60 (>60) mL/min BUN/Creatinine Ratio 14.0 (6-22) Glucose 124 H (70-99) mg/dL Calcium 9.2 (8.4-10.2) mg/dL Total Bilirubin 0.5 (0.2-1.3) mg/dL AST 40 H (14-36) IU/L ALT 36 H (<35) IU/L Alkaline Phosphatase 97 (38-126) U/L Total Protein 7.8 (6.3-8.2) g/dL Albumin 4.8 (3.5-5.0) g/dL Globulin 3.0 (1.7-4.1) g/dL Albumin/Globulin Ratio 1.6 (1.0-2.8) Chlamy pneumoniae PCR Not detected (Not Detect) Adenovirus (PCR) Not detected (Not Detect) B. pertussis DNA (PCR) Not detected (Not Detect) B.parapertussis DNA PCR Not detected (Not Detecte) Coronavirus OC43 (PCR) Not detected (Not Detect) Coronavirus HKU1 (PCR) Not detected (Not Detect) Coronavirus 229E (PCR) Not detected (Not Detect) SARS-CoV-2 (PCR) Not detected (Not Detecte) Coronavirus NL63 (PCR) Not detected (Not Detect) Human Metapneumovir PCR Not detected (Not Detect) Influenza Type A (PCR) Not detected (Not Detect) Influenza Type B (PCR) Not detected (Not Detect) M. pneumoniae (PCR) Not detected (Not Detect) Parainfluenza 1 (PCR) Detected H (Not Detect) Parainfluenza 2 (PCR) Not detected (Not Detect) Parainfluenza 3 (PCR) Not detected (Not Detect) Parainfluenza 4 (PCR) Not detected (Not Detect) RSV (PCR) Not detected (Not Detect) Entero/Rhino (PCR) Not detected (Not Detect) Group A Strep (PCR) Negative (Negative) Imaging Data CT soft tissue neck: Radiologist's Impression: [address] [address] [address] Scan Report Signed Patient: Trupti Arellano MR#: [id number] : 1950 Acct:[id number] Age/Sex: 75 / F Date of Service: 09/01/25 Loc: ED Accession Number: [id number] Procedure: CT soft tissue neck w con Ordering Provider: Valerio Cordero MD PROCEDURE: CT SOFT TISSUE NECK W CON INDICATIONS: Sore throat TECHNIQUE: After the administration of intravenous contrast, 3.0 mm axial sections acquired from the sella to the aortic arch. Additional oblique axial 3.0 mm sections acquired through the pharynx. 3 mm thick coronal and sagittal reformats were generated. For radiation dose reduction, the following was used: automated exposure control. COMPARISON: Thyroid ultrasound 05/27/2025. FINDINGS: Image quality: Streak artifact from dental amalgam limits evaluation of surrounding oral structures.. Lymph nodes: No enlarged lymph nodes seen throughout the neck. Vessels: Visualized vasculature appears patent. Neck spaces: The oropharynx, nasopharynx, and pharynx demonstrate no mucosal lesions. The vocal cords, false vocal cords, pyriform sinuses, epiglottis, vallecula, and tongue base all appear normal. Extramucosal spaces appear unremarkable. Glands: The parotid and submandibular glands appear normal. There are multiple right thyroid gland nodules visualized, which have been previously characterized by ultrasound. Miscellaneous: Visualized brain and orbits appear normal. Lung apices appear clear. Superficial soft tissues appear normal. Bones: No suspicious bony lesions. Visualized sinuses and mastoids appear unremarkable. IMPRESSION: 1. No acute process identified. 2. Multiple right thyroid nodules, previous characterized on ultrasound 05/27/2025 Approved by: Padma Burgess M.D.,Ph.D. on 09/01/2025 at 10:50 MDM Narrative Medical decision making narrative: Patient here for sore throat, brought in by ambulance from walk-in clinic. Six days of sore throat but then had shortness of breath today. Has history of asthma. DuoNeb given by EMS on route here. Patient has hoarse voice. Patient states breathing treatment has helped. Lungs are clear. Trachea is midline. Patient able to speak comfortably. No drooling. Airway intact. History of tonsillectomy MDM After history and exam, CBC CMP strep screen respiratory panel CT soft tissue neck Decadron normal saline Differential considered: Includes but not limited to strep throat tonsillar abscess retropharyngeal abscess pharyngitis Medical records reviewed: No recent visit for this complaint Lab Test results independently reviewed as above. Pertinent findings: Positive parainfluenza, WBC 5.1 hemoglobin 14.7 sodium 141 potassium 3.9 BUN 13 creatinine 0.93 Imaging studies independently reviewed: CT soft tissue neck no acute finding Consultations: None indicated at this time Re-evaluations: 9:44 a.m.. at bedside. Patient in no distress. Awaiting for CT imaging and medications. Reviewed results with patient and . Patient feeling much much better. In no respiratory distress. Drinking water/fluids. Speaking full sentences. No stridor. Airway clear in the lungs. No stridor of the neck. Discussion: IV contrast use for CT imaging. Appropriate for discharge home. Airway intact. Patient feeling much better after treatment. Return precautions reviewed. She desires discharge home. Diagnosis: Viral pharyngitis, bronchospasm, parainfluenza infection Discharge Plan Departure Patient Disposition: Home Clinical Impression: Acute viral pharyngitis, Parainfluenza type 1 infection, Acute bronchospasm Instructions: DI for Asthma -- Adult, DI for Viral Upper Respiratory Infection -- Adult, DI for Viral Pharyngitis Activity Restrictions/Additional Instructions: You have tested positive for the parainfluenza 1 virus, this causes the common cold and likely causing pharyngitis/sore throat. No antibiotics are indicated for viral infections. Continue steroid pack tomorrow. Continue your asthma medication. Your shortness of breath today was likely due to bronchospasm with your asthma which was relieved with breathing treatment and steroid. I am glad you are feeling better. See family doctor next week for re-evaluation. Return if worse if any questions or concerns Prescriptions: New methylprednisolone [Medrol (Shane)] 4 mg tablets,dose pack See Rx Instructions .ROUTE .COMPLEX Qty: 21 0RF Rx Instructions: orally per package directions No Action tnzphqeu-ziiojkj-gabh-lutein tablet PO DAILY Patient Comments: 1 tab PO QD amlodipine 2.5 mg tablet 2.5 mg PO DAILY Qty: 90 3RF Rx Instructions: Take one tablet once daily with Lisinopril for high blood pressure MUST BE SEEN FOR FURTHER REFILLS- 11/07/24 lisinopril 2.5 mg tablet 2.5 mg PO DAILY Qty: 90 3RF atorvastatin 20 mg tablet 20 mg PO DAILY Qty: 90 1RF albuterol sulfate 90 mcg/actuation HFA aerosol inhaler 2 puff inhalation Q6H PRN (Reason: shortness of breath or wheezing) Qty: 8.5 3RF methimazole 5 mg tablet 2.5 mg PO .QOD psyllium husk [Fiber (psyllium husk)] PO metronidazole 0.75 % cream 1 applic topical BID Referrals: José Mccain MD [Primary Care Provider, Family Practice] Stand Alone Forms: Patient Portal/API
--- NOTE | 2025-09-01 09:38 | DI.CT.S_ITS ---
PROCEDURE: CT SOFT TISSUE NECK W CON INDICATIONS: Sore throat TECHNIQUE: After the administration of intravenous contrast, 3.0 mm axial sections acquired from the sella to the aortic arch. Additional oblique axial 3.0 mm sections acquired through the pharynx. 3 mm thick coronal and sagittal reformats were generated. For radiation dose reduction, the following was used: automated exposure control. COMPARISON: Thyroid ultrasound 05/27/2025. FINDINGS: Image quality: Streak artifact from dental amalgam limits evaluation of surrounding oral structures.. Lymph nodes: No enlarged lymph nodes seen throughout the neck. Vessels: Visualized vasculature appears patent. Neck spaces: The oropharynx, nasopharynx, and pharynx demonstrate no mucosal lesions. The vocal cords, false vocal cords, pyriform sinuses, epiglottis, vallecula, and tongue base all appear normal. Extramucosal spaces appear unremarkable. Glands: The parotid and submandibular glands appear normal. There are multiple right thyroid gland nodules visualized, which have been previously characterized by ultrasound. Miscellaneous: Visualized brain and orbits appear normal. Lung apices appear clear. Superficial soft tissues appear normal. Bones: No suspicious bony lesions. Visualized sinuses and mastoids appear unremarkable. IMPRESSION: 1. No acute process identified. 2. Multiple right thyroid nodules, previous characterized on ultrasound 05/27/2025 Approved by: Padma Burgess M.D.,Ph.D. on 09/01/2025 at 10:50
[2025-09-01 09:47] LABS: Add Manual Diff / Slide Review NO; Hematocrit 43.6 % (36-46); Hemoglobin 14.7 g/dL (12.0-16.0); Lymphocytes Absolute Auto 2000 /uL (1100-4500); Mean Corpuscular HGB Conc 33.7 % (30-36); Mean Corpuscular Hemoglobin 28.7 PG (26-34); Mean Corpuscular Volume 85.2 fL (80-100); Platelet Count 193 X10^3/uL (150-400)
[2025-09-01 09:52] LABS: Alanine Aminotransferase 36 IU/L (<35); Albumin 4.8 g/dL (3.5-5.0); Albumin Globulin Ratio 1.6 (1.0-2.8); Alkaline Phosphatase 97 U/L (38-126); Blood Urea Nitrogen 13 mg/dL (7-17); Calcium 9.2 mg/dL (8.4-10.2); Carbon Dioxide 25 mmol/L (22-32); Chloride 108 mmol/L (98-107); Estimated Glomerular Filt Rate > 60 mL/min (>60); Globulin 3.0 g/dL (1.7-4.1); Glucose 124 mg/dL (70-99); HEMOLYSIS < 15 (0-50); Potassium 3.9 mmol/L (3.4-5.1); Sodium 141 mmol/L (137-145); Total Protein 7.8 g/dL (6.3-8.2)
[2025-09-01] MEDS: SODIUM CHLORIDE 0.9% 1,000 ML 1000 ML IV (09:58)
[2025-09-01 10:46] LABS: Strep Grp A by PCR Rapid Negative (Negative)
[2025-09-01 11:31] LABS: Coronavirus NL 63 Not Detected (Not Detect); SARS- CoV-2 Not Detected (Not Detecte)
== END 2025-09-01 12:55 | disposition home or self-care (01) ==
PROVIDERS: Emergency Provider Emergency Medicine; Family Provider Family Medicine; PCP Family Medicine
DX: J02.8 Acute pharyngitis due to other specified organisms (principal); B97.89 Other viral agents as the cause of diseases classified elsewhere; J98.01 Acute bronchospasm
CPT/HCPCS: 70491; 80053; 85025; 87070; 87633; 87651; 96365; 99284; J1100; J7030; Q9967

== ENCOUNTER → 2025-09-01 10:11 | Outpatient (CLI) | payer MEDICARE, SELFPAY | PROVIDERS: Family Provider Family Medicine; PCP Family Medicine; Visit Provider Nurse Practitioner Family | DX: J02.9 Acute pharyngitis, unspecified (principal) | CPT/HCPCS: 87070 ==

== ENCOUNTER → 2025-09-15 10:10 | Outpatient (CLI) | payer MEDICARE, SELFPAY ==
--- NOTE | 2025-09-15 10:12 | DI.RAD.S_ITS ---
PROCEDURE: XR CHEST 2V INDICATIONS: Suspected RUL pneumonia possibly resolving TECHNIQUE: 2 views of the chest were acquired. COMPARISON: None. FINDINGS: Surgical changes and devices: Left chest wall lead less pacer is seen. Lungs and pleura: Lungs are clear. No pleural effusions or pneumothorax. Mediastinum: Mediastinal contours are normal. Heart size is normal. Bones and chest wall: No suspicious bony abnormalities. Soft tissues appear unremarkable. IMPRESSION: No acute cardiopulmonary pathology is seen on the current study. Dictated by: Ramy Mancia M.D. on 09/15/2025 at 15:38 Approved by: Ramy Mancia M.D. on 09/15/2025 at 15:39
== END ==
PROVIDERS: Family Provider Family Medicine; PCP Family Medicine; Referring Provider Physician Assistant; Visit Provider Physician Assistant
DX: J18.9 Pneumonia, unspecified organism (principal)
CPT/HCPCS: 71046